=== PATIENT | female | born 1935 | race Caucasian/White ===

== ENCOUNTER → 2022-09-13 | Outpatient (REF) | payer OTHER, MEDICARE, SELFPAY ==
[2022-09-13 08:13] LABS: Anion Gap 9 (5-15); BUN 37 mg/dL (7-18); BUN/Creat Ratio 26.6 RATIO (10-20); Calcium,Total 9.3 mg/dL (8.5-10.1); Chloride 108 mmol/L (98-107); Creatinine, Serum 1.39 mg/dL (0.55-1.02); EST Glomerular Filtration Rate 38 mL/min (>60); Est Glom Filt Rate - Afr Amer 46 mL/min (>60); Glucose 101 mg/dL (74-106); Potassium 3.8 mmol/L (3.5-5.1); Sodium Level 142 mmol/L (136-145)
== END ==
LOC: OLS.BROOKB 05:00
PROVIDERS: Visit Provider Family Medicine
DX: I10 Essential (primary) hypertension (principal)
CPT/HCPCS: 36415; 80048

== ENCOUNTER → 2022-12-23 | Outpatient (REF) | payer OTHER, MEDICARE, SELFPAY ==
[2022-12-23 09:28] LABS: Hematocrit 37.5 % (37-47); Hemoglobin 12.2 g/dL (12.0-15.0); Mean Corp Hgb Conc 32.5 g/dL (32-36); Mean Corpuscular Volume 98.4 fL (81-99); Mean Platelet Vol. 11.1 fl (6.2-12.0); Platelet Count 188 K/mm3 (150-450); RBC Distribution Width CV 15.9 % (11.6-14.6); RBC Distribution Width SD 57.2 fl (35.1-43.9); Red Blood Count 3.81 M/mm3 (4.2-5.4); White Blood Count 5.5 K/mm3 (4.4-11.0)
[2022-12-23 09:46] LABS: Vitamin B12 985 pg/mL (211-911)
[2022-12-23 09:51] LABS: AST(SGOT) 26 U/L (15-37); Alanine Aminotransfer ALT/SGPT 21 U/L (13-56); Albumin, Serum 3.7 g/dL (3.2-5.0); Alkaline Phosphatase 72 U/L (45-117); Anion Gap 9 (5-15); BUN 29 mg/dL (7-18); BUN/Creat Ratio 27.6 RATIO (10-20); Calcium,Total 9.2 mg/dL (8.5-10.1); Chloride 107 mmol/L (98-107); Creatinine, Serum 1.05 mg/dL (0.55-1.02); EST Glomerular Filtration Rate 53 mL/min (>60); Est Glom Filt Rate - Afr Amer 64 mL/min (>60); Globulin 3.6 g/dL (2.2-4.2); Glucose 131 mg/dL (74-106); Potassium 3.7 mmol/L (3.5-5.1); Protein, Total 7.3 g/dL (6.4-8.2); Sodium Level 140 mmol/L (136-145)
== END ==
LOC: OLS.BROOKB 04:00
PROVIDERS: Referring Provider Family Medicine; Visit Provider Family Medicine
DX: D64.9 Anemia, unspecified (principal); I50.32 Chronic diastolic (congestive) heart failure; I35.0 Nonrheumatic aortic (valve) stenosis; I95.1 Orthostatic hypotension; I49.8 Other specified cardiac arrhythmias
CPT/HCPCS: 36415; 80053; 82607; 85027

== ENCOUNTER → 2023-02-07 | Outpatient (REF) | payer MEDICARE, SELFPAY ==
[2023-02-07 08:57] LABS: Anion Gap 10 (5-15); BUN 29 mg/dL (7-18); Calcium,Total 9.8 mg/dL (8.5-10.1); Chloride 105 mmol/L (98-107); Creatinine, Serum 1.16 mg/dL (0.55-1.02); EST Glomerular Filtration Rate 47 mL/min (>60); Est Glom Filt Rate - Afr Amer 57 mL/min (>60); Glucose 94 mg/dL (74-106); Potassium 3.8 mmol/L (3.5-5.1); Sodium Level 140 mmol/L (136-145)
== END ==
LOC: OLS.BROOKB 05:00
PROVIDERS: Visit Provider Family Medicine
DX: I10 Essential (primary) hypertension (principal)
CPT/HCPCS: 36415; 80048

== ENCOUNTER 2023-02-12 10:00 | Emergency (ER) | payer MEDICARE, SELFPAY ==
[2023-02-12 10:01] VITALS: BP 115/56; PULSE 58; RESP 14; TEMP 36.3; O2SAT 97; BMI 28.2
--- NOTE | 2023-02-12 10:26 | CT_ITS ---
STUDY: CT BRAIN WITHOUT CONTRAST REASON FOR EXAM: Female, 87 years old. Altered mental status RADIATION DOSAGE (If Supplied By Facility): CTDIvol = ( 44.99 ) mGy, DLP = ( 762.36 ) mGycm TECHNIQUE: Transaxial CT imaging of the brain was performed without administration of intravenous contrast material. Individualized dose optimization techniques were used for this CT. COMPARISON: No relevant priors. FINDINGS: Normal soft tissue structures. Normal calvarium. Normal size ventricles and extra-axial spaces for the patient''s age. Normal white matter tracts of the cerebral hemispheres. Normal basal ganglia and thalami. Normal brainstem. Normal cerebellum. There is no intracranial hemorrhage. There are no findings of an acute ischemic infarction. Normal visualized paranasal sinuses. CT/Brain/Head without Contrast IMPRESSION: Chronic involutional changes of the brain. No acute hemorrhage Electronically Signed: Anuel Garcia MD at 11:13 EDT ,
--- NOTE | 2023-02-12 10:27 | EX.ED.DYSGE1 ---
HPI History of Present Illness Chief Complaint: Alt LOC Narrative Narrative: This is an 87-year-old female presenting with what sounds like an episode of syncope. Her friend was visiting her and she lives in a dementia unit. She was talking to her and she was slumping down in her chair. She asked her if she felt all right and she said no. She went to go get a nurse to help and when she came back the patient was completely unconscious. This only lasted a short duration. The patient did not have any seizure-like activity. She did not lose her bladder or bowels. Patient has dementia so she does not recall any of this. She does call her friend asked if she is okay. She denies any chest pain or shortness of breath. She has not any recent fevers or falls. She denies any pain. It is reported that her blood pressure was low when I first aroused her. No facial droop, slurred speech. PFSH PFSH Medical History Anemia Chronic diastolic (congestive) heart failure Hallucination Nonrheumatic aortic (valve) stenosis Orthostatic hypotension Presence of prosthetic heart valve Supraventricular tachycardia Home Medications acetaminophen 325 mg tablet 650 mg PO Q6H PRN Pain 02/12/23 [History Last Taken Unknown] amlodipine 5 mg tablet 5 mg PO DAILY 02/12/23 [History Last Taken Unknown] carvedilol 6.25 mg tablet 6.25 mg PO BID 02/12/23 [History Last Taken Unknown] donepezil 10 mg tablet 10 mg PO DAILY 02/12/23 [History Last Taken Unknown] hydrochlorothiazide 25 mg tablet 25 mg PO DAILY 02/12/23 [History Last Taken Unknown] lisinopril 40 mg tablet 40 mg PO DAILY 02/12/23 [History Last Taken Unknown] Allergy/AdvReac Type Severity Reaction Status Date / Time No Known Allergies Allergy Verified 02/12/23 10:11 Social History Smoking Status: Never smoker ROS ROS ED Review of Systems ROS Unobtainable: due to mental status EXAM Physical Exam Const Vital Signs: 02/12/23 10:01 02/12/23 10:47 02/12/23 10:56 Temperature 97.4 F L Temperature Source Temporal Pulse Rate 58 L Pulse Rate [Lying] 51 L Pulse Rate [Sitting (for 1 minute prior to obtaining)] 52 L Pulse Rate [Standing (for 1 minute prior to obtaining)] 64 Respiratory Rate 14 Blood Pressure 115/56 L Blood Pressure [Lying] 102/45 L Blood Pressure [Sitting (for 1 minute prior to obtaining)] 103/54 L Blood Pressure [Standing (for 1 minute prior to obtaining)] 124/67 H Blood Pressure Mean 75 Blood Pressure Mean [Lying] 64 Blood Pressure Mean [Sitting (for 1 minute prior to obtaining)] 70 Blood Pressure Mean [Standing (for 1 minute prior to obtaining)] 86 Pulse Ox 97 Oxygen Delivery Method Room Air Room Air 02/12/23 11:00 02/12/23 12:00 02/12/23 13:00 Temperature Temperature Source Pulse Rate 50 L 51 L 55 L Pulse Rate [Lying] Pulse Rate [Sitting (for 1 minute prior to obtaining)] Pulse Rate [Standing (for 1 minute prior to obtaining)] Respiratory Rate 14 14 Blood Pressure 105/50 L 109/53 L 153/70 H Blood Pressure [Lying] Blood Pressure [Sitting (for 1 minute prior to obtaining)] Blood Pressure [Standing (for 1 minute prior to obtaining)] Blood Pressure Mean 68 71 97 Blood Pressure Mean [Lying] Blood Pressure Mean [Sitting (for 1 minute prior to obtaining)] Blood Pressure Mean [Standing (for 1 minute prior to obtaining)] Pulse Ox 99 98 Oxygen Delivery Method Room Air Room Air 02/12/23 14:35 Temperature Temperature Source Pulse Rate 55 L Pulse Rate [Lying] Pulse Rate [Sitting (for 1 minute prior to obtaining)] Pulse Rate [Standing (for 1 minute prior to obtaining)] Respiratory Rate 13 Blood Pressure 126/57 H Blood Pressure [Lying] Blood Pressure [Sitting (for 1 minute prior to obtaining)] Blood Pressure [Standing (for 1 minute prior to obtaining)] Blood Pressure Mean Blood Pressure Mean [Lying] Blood Pressure Mean [Sitting (for 1 minute prior to obtaining)] Blood Pressure Mean [Standing (for 1 minute prior to obtaining)] Pulse Ox 97 Oxygen Delivery Method Positive well nourished General Appearance ED: NAD Eyes PERRL and EOMs intact bilaterally Chest Wall inspection of chest normal Resp normal respiratory effort and clear to auscultation bilaterally Cardio regular rate and regular rhythm GI normal to inspection, nondistended, normoactive bowel sounds Neuro CN's II-XII intact bilaterally Sensorium / Orientation: alert Psych mental status grossly normal Skin no rashes or lesions noted and no wounds MDM MDM MDM Narrative Medical decision making narrative: Well-appearing female presenting after suspected episode of syncope while she was sitting in the chair. No seizure-like activity. Differential includes intracranial hemorrhage, orthostatic hypotension, ACS, electrolyte abnormalities, anemia, dehydration, CHF, UTI. CBC to assess white blood cell count, hemoglobin, platelets. BMP to assess renal function, electrolytes. BNP to assess for heart failure. High-sensitivity troponin and EKG to assess for ischemia. Chest x-ray to rule out pneumonia or CHF. Orthostatic vital signs obtained. CT brain was obtained as well. CT of the brain was negative for acute findings. Chest x-ray my interpretation shows no acute cardiopulmonary process. The radiologist interprets this and agrees. EKG normal sinus rhythm with a ventricular rate of 51 bpm with occasional PAC on my interpretation. No ischemic changes. CBC shows normal white blood cell count. Hemoglobin stable 11.8. Platelets 190. Creatinine slightly elevated 1.36 and this is near the patient's baseline. Electrolytes unremarkable high-sensitivity troponin is 10. Delta troponin is 8. No significant interval change. BNP 48.4. Orthostatic vital signs were negative. At this point the patient has ultimately negative work-up. I feel she stable for discharge home. Discussed at length with the family. At this point they asked me to take a look at the patient's leg on the right and they were concerned for a small bump. I do not appreciate this bump on examination. The patient does have some tenderness in this area. Counseled to follow-up with her PCP regarding this issue. Impression: 1. Syncope Lab Data Labs: Laboratory Results - last 24 hr 02/12/23 02/12/23 02/12/23 09:47 09:47 09:47 WBC 6.2 RBC 3.66 L Hgb 11.8 L Hct 36.0 L MCV 98.4 MCH 32.2 H MCHC 32.8 RDW Std Deviation 55.0 H RDW Coeff of Patricio 15.3 H Plt Count 190 MPV 11.8 Immature Gran % (Auto) 0.300 Neut % (Auto) 58.8 Lymph % (Auto) 30.6 [place] % (Auto) 6.6 Eos % (Auto) 2.9 Baso % (Auto) 0.8 Absolute Neuts (auto) 3.6 Absolute Lymphs (auto) 1.89 Nucleated RBC % 0 Sodium 143 Potassium 3.7 Chloride 111 H Carbon Dioxide 25.0 Anion Gap 7 BUN 36 H Creatinine 1.36 H Estim Creat Clear Calc 22.61 Est GFR (MDRD) Af Amer 47 L Est GFR (MDRD) Non-Af 39 L BUN/Creatinine Ratio 26.5 H Glucose 121 H Calcium 8.8 Troponin I High Sens 10 B-Natriuretic Peptide 48.4 Urine Color Urine Clarity Urine pH Ur Specific [place] Urine Protein Urine Glucose (UA) Urine Ketones Urine Occult Blood Urine Nitrite Urine Bilirubin Urine Urobilinogen Ur Leukocyte Esterase Urine RBC Urine WBC Ur Squamous Epith Cells Urine Bacteria Urine Mucus 02/12/23 02/12/23 12:26 13:25 WBC RBC Hgb Hct MCV MCH MCHC RDW Std Deviation RDW Coeff of Patricio Plt Count MPV Immature Gran % (Auto) Neut % (Auto) Lymph % (Auto) [place] % (Auto) Eos % (Auto) Baso % (Auto) Absolute Neuts (auto) Absolute Lymphs (auto) Nucleated RBC % Sodium Potassium Chloride Carbon Dioxide Anion Gap BUN Creatinine Estim Creat Clear Calc Est GFR (MDRD) Af Amer Est GFR (MDRD) Non-Af BUN/Creatinine Ratio Glucose Calcium Troponin I High Sens 8 B-Natriuretic Peptide Urine Color Yellow Urine Clarity Sl. Cloudy Urine pH 5.0 Ur Specific [place] 1.015 Urine Protein 30 H Urine Glucose (UA) Normal Urine Ketones Negative Urine Occult Blood Negative Urine Nitrite Negative Urine Bilirubin Negative Urine Urobilinogen Normal Ur Leukocyte Esterase Negative Urine RBC 0 SEEN Urine WBC 0 SEEN Ur Squamous Epith Cells 0-5 SEEN Urine Bacteria 1+ Urine Mucus 0 SEEN Radiography Diagnostic Testing: Clinical Impression(s) from Imaging Studies Brain CT 02/12/23 10:26 IMPRESSION: Chronic involutional changes of the brain. No acute hemorrhage Electronically Signed: Anuel Garcia MD at 11:13 EDT , Chest X-Ray 02/12/23 11:00 IMPRESSION: No acute pulmonary process Electronically Signed: Anuel Garcia MD at 11:13 EDT , Discharge Plan Triage Chief Complaint: Alt LOC ED Provider: Desmond Vera Dx/Rx/DC Orders Instructions: ED Dizziness, Uncertain Cause, ED Dizziness or Syncope ... Prescriptions: No Action acetaminophen 325 mg Tablet 650 mg PO Q6H PRN (Reason: Pain) carvedilol 6.25 mg tablet 6.25 mg PO BID donepezil 10 mg tablet 10 mg PO DAILY amlodipine 5 mg Tablet 5 mg PO DAILY hydrochlorothiazide 25 mg tablet 25 mg PO DAILY lisinopril 40 mg tablet 40 mg PO DAILY Primary Care Provider: Isabella Woodson Referrals: Isabella Woodson MD [Primary Care Provider] - Disposition Disposition: Home, Self Care Discharge Date/Time: 02/12/23 14:42
[2023-02-12 10:54] LABS: Absolute Lymphocyte Count 1.89 X10^3/uL (0.83-4.51); Absolute Neutrophil Count 3.6 X10^3/uL (2.0-7.7); Basophil# 0.05 X10^3/uL; Basophil% 0.8 % (0-1); Eosinophil# 0.18 X10^3/uL; Eosinophils% 2.9 % (0-5); Hemoglobin 11.8 g/dL (12.0-15.0); Lymphocyte # 1.89 X10^3/ul (0.83-4.51); Lymphocyte % 30.6 % (19-41); Mean Corp Hgb Conc 32.8 g/dL (32-36); Mean Corpuscular Hgb 32.2 pg (27.0-32.0); Mean Corpuscular Volume 98.4 fL (81-99); Mean Platelet Vol. 11.8 fl (6.2-12.0); Monocyte# 0.41 X10^3/uL; Monocyte% 6.6 % (0-10); NRBC Flagged by Analyzer 0 % (0-5); Neutrophil # 3.62 X10^3/uL (2.7-7.7); Neutrophil % 58.8 % (47-70); Platelet Count 190 K/mm3 (150-450); RBC Distribution Width CV 15.3 % (11.6-14.6); Red Blood Count 3.66 M/mm3 (4.2-5.4); White Blood Count 6.2 K/mm3 (4.4-11.0)
[2023-02-12 10:56] VITALS: BP 102/45; BP 103/54; BP 124/67; PULSE 51; PULSE 52; PULSE 64
[2023-02-12 11:00] VITALS: BP 105/50; PULSE 50; RESP 14; O2SAT 99
--- NOTE | 2023-02-12 11:00 | RAD_ITS ---
STUDY: X-RAY CHEST REASON FOR EXAM: Female, 87 years old. Atypical chest pain TECHNIQUE: Single AP portable view of the chest. COMPARISON: None. FINDINGS: EKG leads overlie the chest The lungs are clear and expanded. There is no demonstrated pleural abnormality. Normal size heart. Normal mediastinum and [place]. Normal visualized pulmonary arteries. Normal visualized aortic arch and descending thoracic aorta. There are diffuse degenerative changes of the visualized thoracic spine. Normal visualized ribs, clavicles, and shoulders. There is no demonstrated abnormality of the visualized soft tissue structures of the upper abdomen. RAD/Chest 1 View (Portable) IMPRESSION: No acute pulmonary process Electronically Signed: Anuel Garcia MD at 11:13 EDT ,
[2023-02-12 11:12] LABS: BNP,B-Type NATRIURETIC PEPTIDE 48.4 pg/mL (0-100)
[2023-02-12 11:16] LABS: Anion Gap 7 (5-15); BUN 36 mg/dL (7-18); BUN/Creat Ratio 26.5 RATIO (10-20); Calcium,Total 8.8 mg/dL (8.5-10.1); Chloride 111 mmol/L (98-107); Creatinine, Serum 1.36 mg/dL (0.55-1.02); EST Glomerular Filtration Rate 39 mL/min (>60); Est Glom Filt Rate - Afr Amer 47 mL/min (>60); Estimated Creatinine Clearance 22.61 ml/min; Glucose 121 mg/dL (74-106); Potassium 3.7 mmol/L (3.5-5.1); Sodium Level 143 mmol/L (136-145); Troponin-I HS (w/2H Reflex) 10 pg/mL (3.0-54.0)
[2023-02-12 12:00] VITALS: BP 109/53; PULSE 51; RESP 14; O2SAT 98
[2023-02-12 12:35] LABS: Mucous, Urine 0 SEEN /hpf (<or=2+); Red Blood Cells-Urine 0 SEEN /hpf (0-5); White Blood Cells 0 SEEN /hpf (0-5)
[2023-02-12 12:51] LABS: Reflex Troponin-HS? (from REC) Y
[2023-02-12 12:56] LABS: Color, Urine Yellow (Yellow); Glucose, Dipstick Normal (Normal); Ketone-Dipstick Negative (Negative); Leukocyte Esterase-Dipstick Negative /ul (Negative); Nitrite-Dipstick Negative (Negative); Occult Blood-Urine Negative /ul (Negative); Protein-Dipstick 30 mg/dl (Negative); Specific Gravity, Urine 1.015 (1.002-1.030); Urine Bilirubin Dipstick Negative (Negative); Urine Clarity Sl. Cloudy (Clear); Urine Urobilinogen Normal (Normal)
[2023-02-12 13:00] VITALS: BP 153/70; PULSE 55
[2023-02-12 13:05] LABS: Bacteria 1+ /hpf (None Seen); Squamous Epithelial Cells - UA 0-5 SEEN /hpf (5-10)
[2023-02-12 13:49] LABS: Troponin-I HS 8 pg/mL (3.0-54.0)
[2023-02-12 14:35] VITALS: BP 126/57; PULSE 55; RESP 13; O2SAT 97
--- NOTE | 2023-02-12 14:39 | ED.RN ---
THIS RN CALLED BRIGID BACK TO RACHEL NURSE INFORMED OF WORKUP RESULTS AND DISCHARGE.
== END 2023-02-12 14:42 | disposition home or self-care (01) ==
PROVIDERS: Emergency Provider Student in an Organized Health Care Education/Training Program; PCP Family Medicine; Visit Provider Student in an Organized Health Care Education/Training Program
DX: R55 Syncope and collapse (principal); F03.90 Unspecified dementia, unspecified severity, without behavioral disturbance, psychotic disturbance, mood disturbance, and anxiety; I50.32 Chronic diastolic (congestive) heart failure; I35.0 Nonrheumatic aortic (valve) stenosis; Z95.2 Presence of prosthetic heart valve; Z79.899 Other long term (current) drug therapy
CPT/HCPCS: 70450; 71045; 80048; 81001; 83880; 84484; 85025; 93005; 99285; P9612

== ENCOUNTER → 2023-02-28 | Outpatient (REF) | payer MEDICARE, SELFPAY ==
[2023-02-28 08:44] LABS: Vitamin B12 953 pg/mL (211-911)
[2023-02-28 08:51] LABS: Anion Gap 9 (5-15); BUN 34 mg/dL (7-18); BUN/Creat Ratio 26.8 RATIO (10-20); Calcium,Total 8.7 mg/dL (8.5-10.1); Chloride 113 mmol/L (98-107); Creatinine, Serum 1.27 mg/dL (0.55-1.02); EST Glomerular Filtration Rate 42 mL/min (>60); Est Glom Filt Rate - Afr Amer 51 mL/min (>60); Glucose 94 mg/dL (74-106); Potassium 3.9 mmol/L (3.5-5.1); Sodium Level 143 mmol/L (136-145)
== END ==
LOC: OLS.BROOKB 05:00
PROVIDERS: PCP Family Medicine; Visit Provider Family Medicine
DX: I10 Essential (primary) hypertension (principal); E56.9 Vitamin deficiency, unspecified
CPT/HCPCS: 36415; 80048; 82607

== ENCOUNTER → 2023-07-11 | Outpatient (REF) | payer MEDICARE, SELFPAY ==
[2023-07-11 14:53] LABS: Color, Urine Yellow (Yellow); Glucose, Dipstick Normal (Normal); Ketone-Dipstick Negative (Negative); Leukocyte Esterase-Dipstick 100 /ul (Negative); Nitrite-Dipstick Negative (Negative); Occult Blood-Urine 10 /ul (Negative); Protein-Dipstick Negative (Negative); Specific Gravity, Urine 1.015 (1.002-1.030); Urine Bilirubin Dipstick Negative (Negative); Urine Clarity Sl. Cloudy (Clear); Urine Urobilinogen Normal (Normal)
== END ==
LOC: OLS.BROOKB 12:50
PROVIDERS: PCP Family Medicine; Visit Provider Family Medicine
DX: R41.82 Altered mental status, unspecified (principal)
CPT/HCPCS: 81002; 87086; 87088

== ENCOUNTER → 2023-07-25 | Outpatient (REF) | payer MEDICARE, SELFPAY ==
[2023-07-25 09:45] LABS: ALB/GLOB Ratio 0.7 RATIO (0.9-2.4); AST(SGOT) 38 U/L (15-37); Alanine Aminotransfer ALT/SGPT 17 U/L (13-56); Albumin, Serum 2.9 g/dL (3.2-5.0); Alkaline Phosphatase 65 U/L (45-117); Anion Gap 7 (5-15); BUN 26 mg/dL (7-18); BUN/Creat Ratio 21.5 RATIO (10-20); Calcium,Total 8.9 mg/dL (8.5-10.1); Chloride 107 mmol/L (98-107); Creatinine, Serum 1.21 mg/dL (0.55-1.02); EST Glomerular Filtration Rate 45 mL/min (>60); Est Glom Filt Rate - Afr Amer 54 mL/min (>60); Globulin 4.1 g/dL (2.2-4.2); Glucose 118 mg/dL (74-106); Potassium 3.9 mmol/L (3.5-5.1); Sodium Level 135 mmol/L (136-145); Uric Acid 5.9 mg/dL (2.6-6.0)
== END ==
LOC: OLS.BROOKB 05:00
PROVIDERS: PCP Family Medicine; Visit Provider Family Medicine
DX: R60.9 Edema, unspecified (principal)
CPT/HCPCS: 36415; 80053; 84550

== ENCOUNTER 2023-07-30 19:42 | Emergency (ER) | payer MEDICARE, SELFPAY ==
[2023-07-30 19:43] VITALS: BP 161/78; PULSE 70; RESP 16; TEMP 36.4; O2SAT 100
--- NOTE | 2023-07-30 20:17 | EX.ED.DYSGE1 ---
HPI History of Present Illness Chief Complaint: Cellulitis Detail of Chief Complaint: Left elbow swelling. Informant: patient and family Onset/Context/Timing Onset: Days Context: Gradual Onset Timing: Continuous Current Severity: Mild Maximum Severity: Mild Narrative Narrative: 87-year-old female history of dementia in a local extended care facility. Believes she may have fell and injured her left elbow about a week ago. She has had some mild discomfort and swelling of the elbow. No other injuries. X-rays were obtained at the extended care [facility] which were read as negative. No fracture or dislocation. She was seen in urgent care [facility] and sent to the emergency department. She has had no fever or other symptoms. She does not complain of any other injuries. Daughter is at bedside and giving most of the history. Prior similar symptoms: No Recent Illness/Hospitalization: No [facility] Medical History Anemia Chronic diastolic (congestive) heart failure Hallucination Nonrheumatic aortic (valve) stenosis Orthostatic hypotension Presence of prosthetic heart valve Supraventricular tachycardia Home Medications acetaminophen 325 mg tablet 650 mg PO Q6H PRN Pain 02/12/23 [History Last Taken Unknown] amlodipine 5 mg tablet 5 mg PO DAILY 02/12/23 [History Last Taken Unknown] carvedilol 6.25 mg tablet 6.25 mg PO BID 02/12/23 [History Last Taken Unknown] donepezil 10 mg tablet 10 mg PO DAILY 02/12/23 [History Last Taken Unknown] hydrochlorothiazide 25 mg tablet 25 mg PO DAILY 02/12/23 [History Last Taken Unknown] lisinopril 40 mg tablet 40 mg PO DAILY 02/12/23 [History Last Taken Unknown] cephalexin 500 mg capsule 500 mg PO Q6 #40 CAPSULES 07/30/23 [Rx Last Taken Unknown] cephalexin 500 mg capsule 500 mg PO Q6 #40 CAPSULES 07/30/23 [Rx Last Taken Unknown] Allergy/AdvReac Type Severity Reaction Status Date / Time No Known Allergies Allergy Verified 07/30/23 19:44 Social History Smoking Status: Never smoker ROS ROS ED ROS Narrative No recent illness. Review of Systems ROS Unobtainable: Denies due to encephalopathy Constitutional Constitutional ED: Denies chills Eyes Eyes: Denies blurry vision ENT ENT ED: Denies ear pain Cardiovascular Cardiovascular: Denies chest pain Respiratory/Chest Respiratory/Chest: Denies cough Gastrointestinal Gastrointestinal: Denies abdominal pain Genitourinary Genitourinary ED: Denies dysuria Musculoskeletal Musculoskeletal: Denies arthralgias Integumentary Denies abscess Neurologic Neurologic: Denies headache(s) Psychiatric Psychiatric: Denies anxiety Endocrine Endocrinology: Denies cold intolerance Hematologic/Lymphatic Hematologic/Lymphatic: Reports none Allergic/Immunologic Allergic/Immunologic ED: Denies mouth swelling, tongue swelling or urticaria EXAM Physical Exam Narrative Exam Narrative: Well-appearing 87-year-old female. Vital signs are stable afebrile. HEENT exam unremarkable atraumatic. Lungs clear to auscultation. Heart regular rhythm no murmur. Rate about 70. Chest wall and ribs nontender. Abdomen soft nontender. Moving all 4 extremities. No deformity. No significant tenderness. The left elbow has an abrasion. It is mildly warm. There is some inflammation of the bursa but no fluctuance. No fluid to drain. She has full flexion extension of the elbow. There is no bony deformity. No signs of a septic joint. There is mild redness on the posterior aspect of the elbow. This could all be secondary to traumatic bursitis versus an early cellulitis. There is no signs of a septic bursitis nor septic joint. Neurologically she is awake. Limited informant due to her dementia. Const Vital Signs: 07/30/23 19:43 Temperature 97.6 F L Temperature Source Temporal Pulse Rate 70 Respiratory Rate 16 Blood Pressure 161/78 H Blood Pressure Mean 105 Pulse Ox 100 Oxygen Delivery Method Room Air Positive well nourished and well developed; Negative for cachectic, contractures or unkempt General Appearance ED: well developed and NAD; Negative for unkempt, cachectic, contractures, cyanotic or diaphoretic Nutritional Appearance: Negative for cachectic HEENT Reports moist mucous membranes Negative for trauma or tenderness Eyes PERRL and EOMs intact bilaterally General Eye ED: Negative for pale conjunctiva or scleral icterus Neck no lymphadenopathy, supple and no JVD General: Negative for tenderness Lymph Lymphatic: Negative for other Chest Wall inspection of chest normal and palpation of chest normal Chest: Negative for other Resp normal respiratory effort and clear to auscultation bilaterally Effort and Inspection: Negative for retractions Auscultation: Negative for rales, rhonchi or wheezes Cardio regular rhythm, S1 normal heart sound, S2 normal heart sound and no murmurs GI normal to inspection, nondistended, normoactive bowel sounds, non-tender, non-distended and no masses Inspection: Negative for abdominal distention Auscultation: normoactive bowel sounds Palpation: soft; Negative for tender or guarding Back/Spine no CVA tenderness Extremity normal to inspection Extremity Narrative: Left elbow posteriorly mildly swollen. Mild bursitis. No fluctuance. Minimal redness. Mild abrasion. Full flexion-extension the elbow. No bony deformity. No effusion. No septic joint. Traumatic bursitis with or without early cellulitis. Shoulder and left wrist nontender. No axillary lymphadenopathy. Normal trackwalker strength. General Extremety ED: Yes edema General Extremity: edema Neuro CN's II-XII intact bilaterally Sensorium / Orientation: alert Motor Exam: strength 5/5 throughout Psych mental status grossly normal Appearance: Negative for unkempt Attitude: No agitated Mood & Affect: Negative for depressed, anxious or tearful Skin No no rashes or lesions noted and no wounds General Skin Exam: elasticity normal Lesions: No lesion noted Rashes: rashes noted Trauma: abrasion Wounds: Negative for wounds noted MDM MDM MDM Narrative Medical decision making narrative: 87-year-old female has a left elbow traumatic bursitis with possibly an early cellulitis. She will be started on Keflex 500 4 times daily for 10 days. Ice to the area. Tylenol for pain. Follow-up to ensure it is improving. First dose of Keflex given here. Prescription sent to her pharmacy. Daughter is comfortable with the plan. She is already had outpatient x-rays that were read as negative. I reviewed the report. History & Record Review Discussion w/independent historian: Patient and Family Additional record(s) reviewed:: Prior inpatient record, Prior outpatient record, Prior ED visit and Prior labs Discharge Plan Triage Chief Complaint: Cellulitis ED Provider: Benji Key Dx/Rx/DC Orders Clinical Impression: Cellulitis, Bursitis due to trauma Instructions: ED Bursitis, ED Cellulitis Prescriptions: New cephalexin 500 mg capsule 500 mg PO Q6 Qty: 40 0RF cephalexin 500 mg capsule 500 mg PO Q6 Qty: 40 0RF No Action acetaminophen 325 mg Tablet 650 mg PO Q6H PRN (Reason: Pain) carvedilol 6.25 mg tablet 6.25 mg PO BID donepezil 10 mg tablet 10 mg PO DAILY amlodipine 5 mg Tablet 5 mg PO DAILY hydrochlorothiazide 25 mg tablet 25 mg PO DAILY lisinopril 40 mg tablet 40 mg PO DAILY Primary Care Provider: Isabella Woodson Referrals: Isabella Woodson MD [Primary Care Provider] - 1 Week if not improving Activity Restrictions/Additional Instructions: Traumatic bursitis which is inflammation of the bursa sac. She may have an early soft tissue infection called cellulitis. Ice to the area. Tylenol for pain. Biotic Keflex 1 pill 4 times a day till gone to treat any possible infection. Follow-up with your doctor if not improving. Return if a lot worse. Disposition Disposition: Home, Self Care
[2023-07-30 20:23] VITALS: BMI 31.4
[2023-07-30] MEDS: Cephalexin 250 MG Capsule 500 MG PO (20:32)
== END 2023-07-30 20:38 | disposition home or self-care (01) ==
PROVIDERS: Emergency Provider Emergency Medicine; PCP Family Medicine; Visit Provider Emergency Medicine
DX: M70.32 Other bursitis of elbow, left elbow (principal); F03.90 Unspecified dementia, unspecified severity, without behavioral disturbance, psychotic disturbance, mood disturbance, and anxiety; I50.32 Chronic diastolic (congestive) heart failure; S50.312A Abrasion of left elbow, initial encounter; L03.114 Cellulitis of left upper limb; W19.XXXA Unspecified fall, initial encounter; Z79.899 Other long term (current) drug therapy
CPT/HCPCS: 99282

== ENCOUNTER → 2023-09-01 | Outpatient (REF) | payer MEDICARE, SELFPAY ==
--- OUTSIDE RECORDS SUMMARY | 2023-09-01 03:57 | XMS RPT_ITS | CCD ---
Author Name Unknown Address [address] [place] [address] Organization [facility] Care Team Providers Care Supervisor [employer] Name Role Phone Lexus Pozo Primary Care Provider Renae Winchester DO Primary Care Provider [phone] Renae Winchester DO Primary Care Provider [phone] Renae Winchester DO Primary Care Provider [phone] Lexus Pozo Primary Care Provider Unavailable LEXUS POZO Primary Care Unava ilable Medications Current Medications Medication Drug Class(es) Dates Sig (Normalized) Sig (Original) albuterol 0.833 mg/ml / ipratropium bromide 0.167 mg/ml inhalant solution (1 source) Anticholinergic, beta2-Adrenergic Agonist Start: 10-29-2019 1 ampule, Inhalation, EVERY 4 HOURS PRN, Shortness of Breath, Starting Fri10/29/19 at 0209 benzonatate 100 mg oral capsule (1 source) Non-narcotic Antitussive Start: 10-29-2019 take 100 mg by mouth three times daily as needed for cough 100 mg, Oral, 3 TIMES DAILY PRN, Cough, Starting Fri10/29/19 at 0209 Cyanocobalamin (VITAMIN B12) 3000 MCG/ML LIQD (3 sources) Cyanocobalamin (VITAMIN B12) 3000 MCG/ML LIQD Take 1,000 mcg by mouth 0 Active Completed/Discontinued Medications Medication Drug Class(es) Dates Sig (Normalized) Sig (Original) acetaminophen 325 mg oral tablet (4 sources) Start: 02-12-2023 acetaminophen (TYLENOL) 325 mg tablet Take by mouth. 0 02/12/2023 Active Problems Active Problems Problem Classification Problem Date Documented Da te Episodic/Chronic Administrative/social admission (4 sources) Caregiver role strain; Translations: [Dependent relative needing care at home] Episodic Cardiac dysrhythmias (9 sources) Idiojunctional tachycardia; Translations: [EKG: accelerated junctional rhythm] Onset: 01-13-2020 01-13-2020 Chronic Congestive heart failure; nonhypertensive (4 sources) Chronic diastolic heart failure; Translations: [Chronic diastolic (congestive) heart failure] Onset: 12-25-2020 12-25-2020 Chronic Deficiency and other anemia (3 sources) Anemia; Translations: [Anemia, unspecified] Onset: 02-04-2022 Episodic Delirium dementia and amnestic and other cognitive disorders (12 sources) Dementia; Translations: [Unspecified dementia without behavioral disturbance] Onset: 04-03-2015 05-25-2015 Chronic Disorders of lipid metabolism (8 sources) Hyperlipidemia; Translations: [Hyperlipidemia, unspecified] Onset: 04-03-2015 04-03-2015 Chronic Essential hypertension (13 sources) Essential hypertension; Translations: [Essential (primary) hypertension] Onset: 04-03-2015 05-25-2015 Chronic Headache; including migraine (8 sources) Migraine without aura; Translations: [Migraine without aura, not intractable, without status migrainosus] Onset: 04-03-2015 05-25-2015 Chronic Heart valve disorders (20 sources) Aortic valve disorder; Translations: [Aortic valve stenosis] Onset: 04-03-2015 10-01-2018 Chronic Malaise and fatigue (4 sources) Asthenia; Translations: [Other malaise] Onset: 12-31-2021 Episodic Other bone disease and musculoskeletal deformities (4 sources) Disorder of skeletal system; Translations: [Disorder of bone and cartilage] Onset: 04-03-2015 05-25-2015 Chronic Other circulatory disease (7 sources) Orthostatic hypotension; Translations: [Orthostatic hypotension] 10-29-2019 Episodic Other screening for suspected conditions (not mental disorders or infectious disease) (6 sources) EKG: accelerated junctional rhythm; Translations: [Liver function tests abnormal] 10-19-2018 Episodic Skin and subcutaneous tissue infections (1 source) Cellulitis of left elbow; Translations: [Cellulitis of left upper limb] 07-30-2023 Episodic Past or Other Problems Problem Classification Problem Date Documented Da te Episodic/Chronic Acute and unspecified renal failure (4 sources) Acute injury of kidney; Translations: [Acute kidney failure, unspecified] Onset: 01-01-2022 Resolved: 01-01-2022 Episodic Biliary tract disease (8 sources) Gallstone; Translations: [Calculus of gallbladder without cholecystitis without obstruction] Onset: 04-03-2015 05-25-2015 Episodic Fluid and electrolyte disorders (4 sources) Metabolic acidosis, normal anion gap (NAG); Translations: [Acidosis] Onset: 01-01-2022 Resolved: 01-02-2022 Episodic Nutritional deficiencies (8 sources) Vitamin B-complex deficiency ; Translations: [Deficiency of other specified B group vitamins] Onset: 04-03-2015 04-03-2015 Episodic Other and unspecified benign neoplasm (8 sources) Benign neoplasm of colon; Translations: [Benign neoplasm of colon, unspecified] Onset: 04-03-2015 04-03-2015 Episodic Other bone disease and musculoskeletal deformities (4 sources) Disorder of skeletal system; Translations: [Disorder of bone, unspecified] Onset: 04-03-2015 05-25-2015 Episodic Other hematologic conditions (3 sources) Protein level - finding; Translations: [Other specified abnormalities of plasma proteins] Onset: 02-03-2022 Resolved: 03-06-2022 Episodic Other lower respiratory disease (5 sources) Dyspnea on exertion; Translations: [Dyspnea, unspecified] Onset: 01-01-2022 Resolved: 01-02-2022 Episodic Residual codes; unclassified (4 sources) Confusional state; Translations: [Disorientation, unspecified] Resolved: 01-02-2022 Episodic Syncope (7 sources) Syncope and collapse; Translations: [Syncope and collapse] Onset: 10-29-2019 Resolved: 10-29-2019 10-29-2019 Episodic Results Test Name Value Interpretation Reference Range Facil ity Vital Signs Date Time Vital Sign Value Performing Clinician Facility 07-30-2023 19:15-0500 Body temperature 97.11 [degF] Elie Portillo MD Work Phone: [facility] 07-30-2023 19:15-0500 Body weight 70.49 kg Elie Portillo MD Work Phone: [facility] 07-30-2023 19:15-0500 Diastolic blood pressure 86 mm[Hg] Elie Portillo MD Work Phone: [facility] 07-30-2023 19:15-0500 Heart rate 75 /min Elie Portillo MD Work Phone: [facility] 07-30-2023 19:15-0500 Respiratory rate 20 /min Elie Portillo MD Work Phone: [facility] 07-30-2023 19:15-0500 SaO2% (BldA) [Mass fraction] 97 % Elie Portillo MD Work Phone: [facility] 07-30-2023 19:15-0500 Systolic blood pressure 146 mm[Hg] Elie Portillo MD Work Phone: [facility] 02-04-2022 13:30-0400 Diastolic blood pressure 79 mm[Hg] DIRK Gonsalves MD Work Phone: [facility] 02-04-2022 13:30-0400 Heart rate 63 /min DIRK Gonsalves MD Work Phone: [facility] 02-04-2022 13:30-0400 Systolic blood pressure 157 mm[Hg] DIRK Gonsalves MD Work Phone: [facility] 02-04-2022 11:20-0400 Body temperature 97.2 [degF] DIRK Gonsalves MD Work Phone: [facility] 02-04-2022 11:20-0400 Respiratory rate 20 /min DIRK Gosnalves MD Work Phone: [facility] 02-04-2022 11:20-0400 SaO2% (BldA) [Mass fraction] 99 % DIRK Gonsalves MD Work Phone: [facility] 02-04-2022 00:01-0400 Body mass index (BMI) [Ratio] 31.9 kg/m2 DIRK Gonsalves MD Work Phone: [facility] 02-04-2022 00:01-0400 Body weight 66.86 kg DIRK Gonsalves MD Work Phone: [facility] 02-03-2022 15:57-0400 Body height 144.8 cm DIRK Gonsalves MD Work Phone: [facility] 01-02-2022 11:44-0400 Body temperature 98.8 [degF] Desmond Jimenez MD Work Phone: [facility] 01-02-2022 11:44-0400 Diastolic blood pressure 82 mm[Hg] Desmond Jimenez MD Work Phone: [facility] 01-02-2022 11:44-0400 Heart rate 79 /min Desmond Jimenez MD Work Phone: [facility] 01-02-2022 11:44-0400 Respiratory rate 17 /min Desmond Jimenez MD Work Phone: [facility] 01-02-2022 11:44-0400 SaO2% (BldA) [Mass fraction] 95 % Desmond Jimenez MD Work Phone: [facility] 01-02-2022 11:44-0400 Systolic blood pressure 140 mm[Hg] Desmond Jimenez MD Work Phone: [facility] 01-02-2022 00:26-0400 Body mass index (BMI) [Ratio] 31.77 kg/m2 Desmond Jimenez MD Work Phone: [facility] 01-02-2022 00:26-0400 Body weight 66.59 kg Desmond Jimenez MD Work Phone: [facility] 01-01-2022 02:10-0400 Body height 144.8 cm Desmond Jimenez MD Work Phone: [facility] 10-29-2019 15:08-0500 Body Temperature 99.1 [degF] [facility] [place] 10-29-2019 15:08-0500 BP Diastolic 60 mm[Hg] [facility] [place] [facility] [place] 10-29-2019 15:08-0500 BP Systolic 132 mm[Hg] [facility] [place] 10-29-2019 15:08-0500 Pulse (Heart Rate) 59 /min [facility] [place] 10-29-2019 15:08-0500 Pulse Oximetry 95 % [facility] [place] [facility] [place] 10-29-2019 15:08-0500 Respiratory Rate 16 /min DIRK Don [facility] [place] [place] 10-29-2019 01:15-0500 BMI (Body Mass Index) 31.62 kg/m2 NA Aleksandr Don [facility] [place], [place] 10-29-2019 01:15-0500 Body weight 66.27 [facility] 10-29-2019 01:15-0500 Height 144.8 cm NA Aleksandr [facility] , [place] Encounters Encounter Date Encounter Type Care Provider Facility Start: 07-30-2023 End: 07-30-2023 ambulatory LEXUS POZO Facility:[facility] Start: 07-30-2023 End: 07-30-2023 Patient encounter procedure Elie Portillo MD Work Phone: [facility] Procedures Date Procedure Procedure Detail Performing Clinician Start: 03-14-2022 Echo tthrc r-t 2d w/ wom-mode compl spec&colr d Renae Winchester DO Work Phone: Start: 02-04-2022 ADD ON LAB TEST Jessica BRANHAM Work Phone: Start: 02-04-2022 Ecg routine ecg w/le ast 12 lds w/i&r Eric Bynum MD Work Phone: Start: 02-04-2022 Assay of magnesium Massimo Bynum MD Work Phone: Start: 02-04-2022 BASIC METABOLIC PANE L W/ REFLEX TO MG FOR LOW K Eric Bynum MD Work Phone: Start: 02-03-2022 Assay of troponin quantitative Eric Bynum MD Work Phone: Start: 02-03-2022 Basic metabolic pane l calcium total Maximino Pastrana MD Work Phone: Start: 02-03-2022 Radex ankle complete minimum 3 views Maximino Pastrana MD Work Phone: Start: 02-03-2022 Radiologic exam ches t single view Maximino Pastrana MD Work Phone: Start: 02-03-2022 Ecg routine ecg w/le ast 12 lds w/i&r Mariana Álvarez PA-C Work Phone: Start: 01-02-2022 25 hydroxy includes fractions if performed Jessica BRANHAM Work Phone: Start: 01-02-2022 BASIC METABOLIC PANE L W/ REFLEX TO MG FOR LOW K Eric Bynum MD Work Phone: Start: 01-01-2022 ADD ON LAB TEST Jessica BRANHAM Work Phone: Start: 01-01-2022 BASIC METABOLIC PANE L W/ REFLEX TO MG FOR LOW K Eric Bynum MD Work Phone: Start: 01-01-2022 Cyanocobalamin vitamin b-12 Eric Bynum MD Work Phone: Start: 12-31-2021 POCT COVID-19, ANTIGEN Desmond Jimenez MD Work Phone: Start: 12-31-2021 Radiologic exam ches t single view Desmond Jimenez MD Work Phone: Start: 12-31-2021 Culture bacterial qu anttative colony count urine Desmond Jimenez MD Work Phone: Start: 12-31-2021 Urnls dip stick/tabl et rgnt auto w/o microscopy Desmond Jimenez MD Work Phone: Start: 12-31-2021 Comprehensive metabolic panel Desmond Jimenez MD Work Phone: Start: 12-31-2021 Ecg routine ecg w/le ast 12 lds w/i&r Desmond Jimenez MD Work Phone: Start: 01-20-2021 Comprehensive metabolic panel Renae Winchester DO Work Phone: Start: 03-13-2020 Basic metabolic pane l calcium total Lexus Spoljaric Work Phone: Start: 10-29-2019 ADD ON LAB TEST Irma Berry Work Phone: Start: 10-29-2019 Assay of troponin quantitative Peter Brandon Work Phone: Start: 10-29-2019 Cyanocobalamin vitamin b-12 Peter Brandon Work Phone: Start: 10-29-2019 Assay of troponin quantitative Peter Brandon Work Phone: Start: 10-29-2019 Basic metabolic pane l calcium total Peter Brandon Work Phone: Start: 10-29-2019 Blood count complete automated Peter Brandon Work Phone: Start: 10-28-2019 Electrocardiogram Start: 10-16-2019 Basic metabolic pane l calcium total Imani Wheatley Work Phone: Start: 10-16-2019 Blood count complete automated Imani Wheatley Work Phone: Start: 10-14-2019 Echo tthrc r-t 2d w/ wom-mode compl spec&colr d Imani Wheatley Work Phone: Plan of Treatment Date Care Activity Detail Author Start: 02-02-2028 DTaP/Tdap/Td vaccine (4 - Td or Tdap) DTaP/Tdap/Td vaccine (4 - Td or Tdap) [facility] Start: 02-02-2028 DTaP/Tdap/Td vaccine (4 - Td) DTaP/Tdap/Td vaccine (4 - Td) [place], [place] Start: 02-02-2028 Urine microalbumin profile DTaP,Tdap,Td Vaccine (4 - Td or Tdap) [facility] Start: 04-07-2025 Diabetes Screening Diabetes Screening [facility] Start: 04-25-2023 Covid-19 Vaccine () Covid-19 Vaccine () [facility] Start: 04-25-2023 Influenza vaccination Influ[facility] Vacc[facility] Start: 03-11-2023 End: 03-11-2023 Patient encounter procedure 03/11/2023 Office Visit Family Medicine Renae Winchester, DO [address] [place] [address] [facility] Start: 03-08-2023 Annual Wellness Visit (AWV) Annual Wellness Visit (AWV) [facility] Start: 02-28-2023 Depression Screen Depression Screen [facility] Start: 12-25-2022 Depression Screen Depression Screen [facility] Start: 08-25-2022 Advance Directive Discussion Advance Directive Discussion [facility] Start: 08-25-2022 Depression Assessment Depression Assessment [facility] Start: 04-25-2022 Influenza vaccination Flu vaccine (#1) [facility] Start: 03-22-2022 End: 03-22-2022 Patient encounter procedure 03/22/2022 Office Visit Family Medicine Renae Winchester, DO [address] [place] [address] [facility] Start: 03-14-2022 End: 03-14-2022 Patient encounter procedure 03/14/2022 Appointment Echocardiography Renae Winchester, DO [address] [place] [address] [facility] Start: 03-07-2022 End: 03-07-2022 Patient encounter procedure 03/07/2022 Office Visit Family Medicine Renae Winchester, DO [address] [place] [address] [facility] Start: 02-07-2022 End: 02-07-2022 Evaluation and management of inpatient 02/07/2022 Office Visit Family Medicine Elaine Campbell, [employer] [address], [place] [id number] [facility] Start: 01-20-2022 Creatinine measurement Creatinine monitoring [facility] Work Phone: Start: 01-20-2022 Potassium monitoring Potassium monitoring [facility] Work Phone: Start: 12-26-2021 Annual Wellness Visit (AWV) Annual Wellness Visit (AWV) [facility] Start: 10-26-2021 COVID-19 Vaccine (4 - Booster for Moderna series) COVID-19 Vaccine (4 - Booster for Moderna series) [facility] Start: 03-17-2021 COVID-19 Vaccine (3 - Booster for Moderna series) COVID-19 Vaccine (3 - Booster for Moderna series) [facility] Start: 10-28-2020 Creatinine measurement Creatinine monitoring [facility] [place] Start: 10-28-2020 Creatinine monitoring Creatinine monitoring [facility] [place] , [place] Start: 10-28-2020 Potassium monitoring Potassium monitoring [facility], [place] Start: 06-26-2020 End: 06-26-2020 Office Visit 06/26/2020 Office Visit Family Medicine Lexus Pozo MD [address] [place] [address] [phone] [facility] Start: 04-25-2020 Influenza vaccination Flu vaccine (#1) [facility], [place] Start: 01-13-2020 End: 01-13-2020 Office Visit 01/13/2020 Office Visit Cardiology Eric Fall MD [address] [place] [address] [phone] [facility] Start: 12-11-2019 Creatinine monitoring Creatinine monitoring [facility] , [place] Start: 12-11-2019 Potassium monitoring Potassium monitoring [facility], [place] Start: 11-15-2019 End: 11-15-2019 Office Visit 11/15/2019 Office Visit Family Medicine Lexus Pozo MD [address] [place] [phone] [facility] Start: 11-05-2019 End: 11-05-2019 Office Visit 11/05/2019 Office Visit Family Medicine Lexus Pozo MD [address] [place] [phone] [facility] Start: 02-11-2019 Annual Wellness Visit (AWV) Annual Wellness Visit (AWV) [place], [place] Start: 09-26-2011 Shingles Vaccine (2 of 3) Shingles Vaccine (2 of 3) [place], [place] Start: 1999 Bone Density Screening Bone Density Screening [facility] Start: 1994 RSV Vaccine (1 - 1-dose 60+ series) RSV Vaccine (1 - 1-dose 60+ series) [facility] Start: 1944 Lipid panel Lipids [facility] Basic metabolic 1999 panel Basic Metabolic Panel Lab Routine Daily until discontinued starting 10/29/2019, 1 completed [place], [place] Immunizations Immunization Date Immunization Notes Care Provider Stephen elliott 06-28-2021 COVID-19, MODERNA BL UE border, Primary or Immunocompromised, (age 12y+), IM, 100 mcg/0.5mL Renae Winchester DO Work Phone: [facility] 05-25-2021 Influenza, Quadv, adjuvanted, 65 yrs +, IM, PF (Fluad) Renae Winchester DO Work Phone: [facility] Work Phone: 05-25-2021 influenza virus vacc ine, unspecified formulation Elie Portillo MD Work Phone: [facility] 03-29-2021 zoster vaccine recombinant Renae Winchester DO Work Phone: [facility] Work Phone: 01-13-2021 zoster vaccine recombinant Renae Winchester DO Work Phone: [facility] Work Phone: 10-18-2020 COVID-19, Moderna, P F, 100mcg/0.5mL Renae Winchester DO Work Phone: [facility] Work Phone: 09-20-2020 COVID-19, Moderna, P F, 100mcg/0.5mL Renae Winchester DO Work Phone: [facility] Work Phone: 06-26-2020 Influenza, High-dose , Quadv, 65 yrs +, IM (Fluzone) Renae Winchester DO Work Phone: [facility] 07-19-2019 influenza, high dose seasonal, preservative-free [facility] 06-13-2018 influenza, high dose seasonal, preservative-free [facility] 06-13-2018 influenza, injectabl e, quadrivalent, preservative free Renaeclaudia Winchester DO Work Phone: [facility] 02-01-2018 tetanus toxoid, redu latasha diphtheria toxoid, and acellular pertussis vaccine, adsorbed Renaeclaudia Winchester DO Work Phone: [facility] Work Phone: 01-29-2018 diphtheria, tetanus toxoids and acellular pertussis vaccine, 5 pertussis antigens [facility], [place] 05-23-2016 influenza, high dose seasonal, preservative-free [facility], [place] 05-29-2015 influenza virus vacc ine, unspecified formulation [facility] , [place] 05-29-2015 influenza virus vacc ine, whole virus Renae Winchester DO Work Phone: [facility] Work Phone: 05-29-2015 pneumococcal conjuga te vaccine, 13 valent [facility], [place] 12-07-2012 diphtheria, tetanus toxoids and acellular pertussis vaccine [facility], [place] 08-01-2011 zoster vaccine, live [facility], [place] 01-28-2011 pneumococcal polysaccharide vaccine, 23 valent [place], [place] Payers Date Payer Category Payer Medicare UHC MEDICARE UHC MEDICARE ADVANTAGE HMO [id number] 2019-Present [phone] [address] [address] [place] [address] HMO [id number] 2015 Medicare UHC MEDICARE UHC MEDICARE COMPLETE xxxxxxxxx 2015-Present xxxxxxxxx [id number] 2015 Medicare UHC MEDICARE UHC MEDICARE COMPLETE [id number] 2015-Present [id number] 2015 Medicare [id number] Social History Date Type Detail Facility Start: 10-14-2019 End: 07-30-2023 [facility] Start: 10-14-2019 End: 07-30-2023 Alcohol intake Current non-drinker of alcohol (finding) [facility] [employer] [facility] Start: 1935 Sex Assigned At Not on file [facility] [employer] [facility] Start: 03-13-2020 End: 07-30-2023 Tobacco use and exposure [facility] Start: 12-21-2021 End: 03-07-2022 Exposure to SARS-CoV-2 (event) Not sure [facility] [employer] [facility] Start: 12-25-2021 End: 02-07-2022 History SDOH Alcohol Frequency 1 [facility] Work Phone: Start: 12-25-2021 End: 02-28-2022 History SDOH Physical Activity DPW 0 [facility] Work Phone: Start: 02-07-2022 History SDOH Financial 5 [facility] Work Phone: Start: 1935 Sex Assigned At Female S [place] Start: 07-30-2023 History of Social function [facility] Start: 07-30-2023 Tobacco use panel [facility] Clinical Notes 01-02-2022 to 07-30-2023 Elie Portillo MD - 07/30/2023 7:24 PM ESTDischarge Instr - LabDischarge Instr - Other OrdersAdditional InstructionsAmy Kurt - 02/04/2022 8:48 AM EDTHCARROL Luevano - 01/02/2022 1:03 PM EDT Note Date & Type Note Facility 07-30-2023 Note HNO ID: [id number] Author: Elie Portillo MD Service: ? Author Type: Physician Type: Progress Notes Filed: 07/30/2023 7:32 PM Note Text: Patient presents with: Mass: Lump on left elbow, painful, red, swelling x 1 week HPI: [facility] Triage Note: Patient presents to the [facility] with complaint of left elbow swelling. She had fallen at her care facility a week ago - xray negative. Bruising has improved, but now the elbow is warm, swollen, and tender. No known fevers. Tender erythema and swelling over the dorsal left elbow. Advised ER evaluation for possible septic olecranon bursitis vs cellulitis. Her daughter will take her to [facility]. MEDICATIONS: acetaminophen (TYLENOL) 325 mg tablet Take by mouth. amLODIPine (NORVASC) 5 mg tablet carvedilol (COREG) 6.25 mg tablet donepezil (ARICEPT) 10 mg tablet Take 1 tablet by mouth once daily. hydroCHLOROthiazide 25 mg tablet Take 1 tablet by mouth once daily. lisinopril (ZESTRIL) 40 mg tablet Take by mouth. melatonin 3 mg tablet Take 1 tablet by mouth every evening. cholecalciferol (VITAMIN D3) 1,000 unit tab tablet Take 400 Units by mouth. LISINOPRIL ORAL Take by mouth. donepezil (ARICEPT) 10 mg tablet Take 10 mg by mouth daily at bedtime. aspirin (ASPIR-81 ORAL) Take by mouth. calcium carbonate (CALCIUM 500 ORAL) Take by mouth. cyanocobalamin (VITAMIN B-12) 1,000 mcg tab Take 1,000 mcg by mouth once daily. niacin (NIACIN) 50 mg tablet Take 50 mg by mouth daily with breakfast. (Patient not taking: Reported on 07/30/2023) triamterene-hydrochlorothiazide 37.5-25 mg per capsule Take by mouth. (Patient not taking: Reported on 07/30/2023) ALLERGIES: ALLERGIES No Known Allergies VITALS: BP 146/86 Pulse 75 Temp 36.2 ?C (97.1 ?F) Resp 20 Wt 70.5 kg (155 lb 6.4 oz) SpO2 97% BMI 33.63 kg/m? [facility] 07-30-2023 History of Presen t illness Narrative Patient presents with: Mass: Lump on left elbow, painful, red, swelling x 1 week HPI: [facility] Triage Note: Patient [facility] care with complaint of left elbow swelling. She had fallen at her care facility a week ago - xray negative. Bruising has improved, but now the elbow is warm, swollen, and tender. No known fevers. Tender erythema and swelling over the dorsal left elbow. Advised ER evaluation for possible septic olecranon bursitis vs cellulitis. Her daughter will take her to [facility]. MEDICATIONS: acetaminophen (TYLENOL) 325 mg tablet Take by mouth. amLODIPine (NORVASC) 5 mg tablet carvedilol (COREG) 6.25 mg tablet donepezil (ARICEPT) 10 mg tablet Take 1 tablet by mouth once daily. hydroCHLOROthiazide 25 mg tablet Take 1 tablet by mouth once daily. lisinopril (ZESTRIL) 40 mg tablet Take by mouth. melatonin 3 mg tablet Take 1 tablet by mouth every evening. cholecalciferol (VITAMIN D3) 1,000 unit tab tablet Take 400 Units by mouth. LISINOPRIL ORAL Take by mouth. donepezil (ARICEPT) 10 mg tablet Take 10 mg by mouth daily at bedtime. aspirin (ASPIR-81 ORAL) Take by mouth. calcium carbonate (CALCIUM 500 ORAL) Take by mouth. cyanocobalamin (VITAMIN B-12) 1,000 mcg tab Take 1,000 mcg by mouth once daily. niacin (NIACIN) 50 mg tablet Take 50 mg by mouth daily with breakfast. (Patient not taking: Reported on 07/30/2023) triamterene-hydrochlorothiazide 37.5-25 mg per capsule Take by mouth. 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 However, given persistent elevation in blood pressure and questionable aphasia reported in [place] ED, will work-up for stroke. Stroke B order set - CTA H/N and MRI brain NAP. No indication for echo as it is recently done in February 2022 - Cardiology consulted - Geriatrics following --> appreciate recs, completed POA enactment form - Psyh--> lacks capacity - PT/OT> SNF - Medically stable for discharge to [place] Diagnosis Date Aortic stenosis B12 deficiency Cholelithiasis Colon polyp Diverticulosis of colon (without mention of hemorrhage) Headache(784.0) Hyperlipidemia Hypertension Vascular dementia (HCC) Procedures: None Hospital Course: See discharge diagnoses list above and medication adjustments below in med rec.The patient is discharged in improved and stable condition. Consults: IP CONSULT TO HOSPITALIST IP CONSULT TO CASE MANAGEMENT IP CONSULT TO CARDIOLOGY IP CONSULT TO GERIATRICS IP CONSULT TO PSYCHIATRY Discharge Instructions: Diet: ADULT DIET; Regular; Low Sodium (2 gm) Activity: as tolerated Recommended Outpatient Tests: Disposition: Patient discharged in stable condition to [place]. Greater than 30 minutes spent discharging the patient and coming up with patient discharge plan. Vitals: BP (!) 96/49 Pulse 61 Temp 97.3 ?F (36.3 ?C) (Temporal) Resp 18 SpO2 97% Pulse Ox: SpO2 Av.3 % Min: 97 % Max: 98 % Supplemental O2: General appearance: No apparent distress, appears stated age and cooperative with exam HEENT: Normal cephalic, atraumatic without obvious deformity. Pupils equal, round, and reactive to light. Extra ocular muscles intact. Conjunctivae/corneas clear. Neck: Supple, with full range of motion. No jugular venous distention. Trachea midline. No lymphadenopathy. Respiratory: Normal respiratory effort. Clear to auscultation, bilaterally without Rales/Wheezes/Rhonchi. Cardiovascular: Regular rate and rhythm with normal S1/S2 without murmurs, rubs or gallops. Abdomen: Soft, non-tender, non-distended with normal bowel sounds. No rebound or guarding. Musculoskeletal: No clubbing, cyanosis or edema bilaterally. Full range of motion without deformity. Skin: Skin color, texture, turgor normal. No rashes or lesions. Neurologic: Neurovascularly intact without any focal sensory/motor deficits. Cranial nerves: II-XII intact, grossly non-focal. Discharge Medications: Medication List START taking these medications amLODIPine 5 MG tablet Commonly known as: NORVASC Take 1 tablet by mouth daily Start taking on: April 11, 2022 carvedilol 6.25 MG tablet Commonly known as: COREG Take 1 tablet by mouth 2 times daily (with meals) hydroCHLOROthiazide 25 MG tablet Commonly known as: HYDRODIURIL Take 1 tablet by mouth daily Start taking on: April 11, 2022 melatonin 3 MG Tabs tablet Take 1 tablet by mouth nightly CONTINUE taking these medications aspirin 81 MG tablet calcium carbonate 600 MG Tabs tablet donepezil 10 MG tablet Commonly known as: ARICEPT TAKE 1 TABLET BY MOUTH DAILY lisinopril 40 MG tablet Commonly known as: PRINIVIL;ZESTRIL Take 1 tablet by mouth daily TAKE 1 TABLET BY MOUTH DAILY vitamin B-12 1000 MCG tablet Commonly known as: CYANOCOBALAMIN vitamin D 1000 UNIT Tabs tablet Commonly known as: CHOLECALCIFEROL STOP taking these medications metoprolol succinate 100 MG extended release tablet Commonly known as: Toprol XL Where to Get Your Medications These medications were sent to [facility] ([facility]) - [place], [place] - [address] [phone] - F [phone] [address] [place] [phone] amLODIPine 5 MG tablet carvedilol 6.25 MG tablet hydroCHLOROthiazide 25 MG tablet melatonin 3 MG Tabs tablet Recommended Follow-up: Alanis Gavin, RIC - FILE[employer]KER DEVELOPER [address] [facility], [address] [facility] [phone] Follow up on 04/24/2022 S/P hospital Cardiology f/u at 1:30 pm. Readmission Risk Risk of Unplanned Readmission: 14 Complexity of Follow up: [] Moderate Complexity: follow up within 7-14 calendar days (91909) [x] Severe Complexity: follow up within 7 calendar days (30241) Follow up Testing, Pending results or Referrals at Transitional Care Visit: [x] yes [] no Instructions to MA: Please call patient on day after discharge (must document p (more content not included)... [facility] 02-04-2022 Note Attestation signed by Duran Salazar DO at 02/05/2022 11:13 AM Attending Supervising Physician's Attestation Statement I performed a history and physical examination on the patient and discussed the management with the physician assistant professor of geography. I reviewed and agree with the findings and plan as documented in her note . [facility] Discharge Summary Dorothy Christiansen : 1935 ADMIT DATE: 02/03/2022 DISCHARGE DATE: 02/04/2022 PRIMARY CARE PHYSICIAN: Renae Winchester DO VISIT STATUS: Observation CODE STATUS: Full Code DISCHARGE DIAGNOSES: Principal Problem: Uncontrolled hypertension Active Problems: Elevated troponin Anemia Dementia without behavioral disturbance (HCC) S/P TAVR (transcatheter aortic valve replacement) Resolved Problems: * No resolved hospital problems. * HOSPITAL COURSE: Pt is an 86 yo female with PMHx of s/p TAVR, HTN, HLD, vascular dementia presenting d/t asymptomatic uncontrolled HTN (SBP in 190s). SBP improved to 150s for > 24hrs without prns, and amlodipine was added to her medication regimen for discharge. She and family were agreeable to keeping a blood pressure log to bring to transitional care appt. Patient is being discharged in stable condition and agrees with plan. Understands importance of close follow up for re-evaluation and possible repeat vitals/labs/imaging. The problems as detailed below were addressed on admission. #Uncontrolled HTN #HLD - SBP improved to 150s w/o intervention for > 24 hrs. Start amlodipine and continue home lisinopril. Keep BP log - Continue atorvastatin ? #Elevated Troponin - Troponin 0.058-> 0.05. No acute ST-T changes on EKG and pt denies CP and SOB. Suspect in setting of uncontrolled HTN ? #R ankle pain (resolved)- XR's w/ lateral soft tissue swelling, no acute fractures ? #Anemia- Hgb 11.6-> 9.8 overnight. No obvious signs of bleeding. Check repeat CBC at transitional care appt ? # s/p TAVR- Continue ASA ? #Vascular Dementia- Continue memantine and aricept PROCEDURES: CONSULTANTS: DISCHARGE MEDICATIONS: Significant Medication Changes: Start amlodipine Medication List START taking these medications amLODIPine 5 MG tablet Commonly known as: NORVASC Take 1 tablet by mouth daily Start taking on: February 05, 2022 CONTINUE taking these medications aspirin 81 MG tablet calcium carbonate 600 MG Tabs tablet donepezil 10 MG tablet Commonly known as: ARICEPT TAKE 1 TABLET BY MOUTH DAILY lisinopril 40 MG tablet Commonly known as: PRINIVIL;ZESTRIL Take 1 tablet by mouth daily TAKE 1 TABLET BY MOUTH DAILY memantine 5 MG tablet Commonly known as: NAMENDA Take 1 tablet by mouth daily vitamin B-12 1000 MCG tablet Commonly known as: CYANOCOBALAMIN vitamin D 1000 UNIT Tabs tablet Commonly known as: CHOLECALCIFEROL Where to Get Your Medications These medications were sent to [facility]/pharmacy #[id number] - [place], [place] - [address] [place] [address] - P [phone] - F [phone] [place] [id number] ? amLODIPine 5 MG tablet ? lisinopril 40 MG tablet DIET: ADULT DIET; Regular; No Caffeine ACTIVITY: No restriction. SIGNIFICANT DIAGNOSTIC STUDIES: XR R ankle and CXR PENDING RESULTS AT TIME OF DISCHARGE: NA RECOMMENDED NEXT STEPS: Repeat CBC and monitor hgb Titrate amlodipine up if indicated COMPLEXITY OF FOLLOW UP: [] Moderate Complexity:follow up within 7-14 calendar days (09959) [x] Severe Complexity: follow up within 7 calendar days (04951) FOLLOW UP TESTING, PENDING RESULTS OR REFERRALS AT TRANSITIONAL CARE VISIT: [x] Yes - Repeat CBC - Monitor BP's closely and adjust meds as needed [] No DISPOSITION: Home FACILITY/HOME CARE AGENCY NAME: Follow up with Renae iWnchester DO scheduled Notification (telephone encounter) to PCP initiated: [x] Yes [] No INSTRUCTIONS TO MA/SW: Please call patient on day after discharge (must document patient contacted within 2 business days of discharge). FOLLOW UP QUESTIONS FOR MA/SW: 1. Did you get medications filled and taking them as instructed fromdischarge? 2. Are you following your discharge instructions from your hospital stay? 3. Please confirm patient is scheduled for a follow up appointment within the above time frame. DISCHARGE TIME: < 30 minutes Electronically signed by CARROL English on02/04/22 at 2:48 PM EDT [facility] 02-04-2022 Hospital Discharg e instructions Nakia Reeder RN - 02/04/2022 3:48 PM EDT Your physician has ordered skilled home care services for you. Your home care will be provided by: [facility] [phone] Rosa Ackerman LPN - 02/04/2022 8:59 AM EDT Your physician has ordered skilled home care services for you. Your home care will be provided by: [facility] [phone] Jessica Castillo PA - 02/04/2022 Images from the original note were not included. Physician discharge instructions: Dear Stephon, Thank you for allowing me to be a part of the team that provided your medical care during this hospital stay. Here is a brief summary of what we found and instructions for you as you leave the hospital. Reason(s) for hospital stay: You were seen in the hospital for high blood pressure which improved throughout your admission. A new medication called Amlodipine was started. Please continue to take this and monitor your blood pressures at home to record and bring into your follow up appointments. If you begin having SAUNDERS's, experiencing blurry vision, develop dizziness/lightheadedness, please come back to the emergency department for repeat evaluation. Discharge instructions: - Please attend all follow-up appointments as scheduled. - Please bring a medication list and all of your medications to your appointments. - Please take all medications exactly as prescribed in these instructions. If your symptoms return or worsen, please seek immediate medical attention. Thank you for allowing me to be part of your care. I hope you continue to feel better soon. CARROL English [facility] Hospital Medicine Program Please note: You were cared for by a hospitalist during your hospital stay. Once you are discharged, your primary care physician will handle any further medical issues. Please note that no refills for any discharge medications will be authorized once you are discharged, as it is imperative that you return to your primary care physician (or establish a relationship with a primary care physician if you do not have one) for your aftercare needs so that they can reassess your need for medications and monitor your lab values. Your primary care physician should be able to send refills for medications after your follow up appointment. documented in this encounter [facility] Work Phone: 02-04-2022 History of Presen t illness Narrative Physical Therapy Facility/Department: [facility] Physical Therapy Initial Assessment Name: Dorothy Christiansen : 1935 Date of Service: 02/04/2022 Discharge Recommendations: Other (comment),Continue to assess pending progress (FBT) Patient Diagnosis(es): The encounter diagnosis was Elevated troponin. Past Medical History: has a past medical history of Aortic stenosis, B12 deficiency, Cholelithiasis, Colon polyp, Diverticulosis of colon (without mention of hemorrhage), Headache(784.0), Hyperlipidemia, Hypertension, and Vascular dementia (HCC). Past Surgical History: has a past surgical history that includes Tubal ligation and Aortic valve replacement (2019). Assessment Body Structures, Functions, Activity Limitations Requiring Skilled Therapeutic Intervention: Decreased functional mobility ;Decreased ADL status;Decreased body mechanics;Decreased tolerance to work activity;Decreased strength;Decreased safe awareness;Decreased endurance;Decreased balance;Decreased coordination Assessment: Pt was at sink upon entry w nursing. Performed stand <> sit transfer independently while asking history questions. Pt was able to get back up to standing independently as well. Ambulated 150 ft w/o an AD but was unsteady on multiple occasions and feet crossed midline often. Pt was CGA during ambulation. Pt negotiated 10 stairs. Used the railing on the R going up and down and required min assist x 1 to maintain stability and safely move up and down the stairs. Pt was able to get back into bed independently and also doff socks. Noted slight R ankle edema compared to the L. Pt is not at her functional baseline and is not safe to return home independently. Recommend facility based therapy to improve on deficits listed above. Therapy Prognosis: Good Decision Making: Medium Complexity Requires PT Follow-Up: Yes Activity Tolerance Activity Tolerance: Patient limited by endurance;Patient limited by fatigue Plan Plan Plan: 2-3 times per week Plan weeks: 4 wks Current Treatment Recommendations: Strengthening,ROM,Balance training,Functional mobility training,Transfer training,ADL/Self-care training,Endurance training,Gait training,Stair training,Home exercise program,Therapeutic activities Plan Comment: Start AD trials to see if it improves stability and safety Safety Devices Type of Devices: All karen prominences offloaded,Call light within reach,Gait belt,Left in bed Restraints Restraints Initially in Place: No Restrictions Restrictions/Precautions Restrictions/Precautions: Up as Tolerated Required Braces or Orthoses?: No Subjective General Chart Reviewed: Yes Patient assessed for rehabilitation services?: Yes Response To Previous Treatment: Not applicable Family / Caregiver Present: No Diagnosis: Elevated troponin Follows Commands: Within Functional Limits Subjective Subjective: Pt was agreeable to therapy. Denied any pain in LEs currently. Reported she got tired quickly but it is probably because she has been laying in bed for a while. Social/Functional History Social/Functional History Lives With: Alone Type of Home: House Home Layout: Two level Receives Help From: Family (Son lives next door and is able to help as needed) ADL Assistance: Independent Homemaking Assistance: Independent Homemaking Responsibilities: Yes Ambulation Assistance: Independent Transfer Assistance: Independent Vision/Hearing Cognition Orientation Overall Orientation Status: Within Functional Limits Orientation Level: Disoriented to place (Once back in room pt kept asking if this was really her room and that it looked different.) Cognition Overall Cognitive Status: WFL Objective Heart Rate: 72 Heart Rate Source: Monitor BP: (!) 158/88 BP Location: Left Arm Patient Position: Supine MAP (Calculated): 111.33 Resp: 18 SpO2: 96 % O2 Device: None (Room air) AROM RLE (degrees) RLE AROM: WFL AROM LLE (degrees) LLE AROM : WFL Strength RLE Comment: Grossly weak 3+/5 Strength LLE Comment: Grossly weak 3+/5 Bed mobility Sit to Supine: Independent Bed Mobility Comments: Pt was standing at sink w nursing upon entry. Transfers Sit to Stand: Independent Stand to sit: Independent Ambulation Surface: level tile Device: No Device Assistance: Contact guard assistance Quality of Gait: Feet crossed midline multiple times. Would veer to the side on multiple occasions as well. Distance: 150 ft Comments: Noticeable increased WOB w ambulation. Required CGA as the pt was unsteady at times and required assist for safe ambulation. Stairs/Curb Stairs?: Yes Stairs # Steps : 10 Stairs Height: 6 Rails: Right ascending Device: No Device Assistance: Minimal assistance Comment: Required railing both ascending and descending. Min assist for safety and stability Balance Posture: Good Sitting - Static: Good Sitting - Dynamic: Good (Was able to reach down and doff socks without holding onto bed rail) Standing - Static: Fair;+ (Was able to stand at sink and brush teeth w supervision from nursing) Standing - Dynamic: Fair (Able to step over tele lines while holding onto bed rails) AM-PAC Score AM-PAC Inpatient Mobility Raw Score : 22 (02/04/22826) AM-PAC Inpatient T-Scale Score : 53.28 (02/04/22826) Mobility Inpatient CMS 0-100% Score: 20.91 (02/04/22826) Mobility Inpatient [facility] G-Code Modifier : CJ (02/04/22826) Goals Short Term Goals Short term goal 1: Pt will be able to ambulate 200 ft using LRD independently Short term goal 2: Pt will be able to negotiate 10 steps w supervision Patient Goals Patient goals : Not stated Education Patient Education Education Given To: Patient Education Provided: Role of Therapy;Plan of Care Education Method: Verbal Education Outcome: Verbalized understanding Therapy Time Individual Concurrent Group Co-treatment Time In 0810 Time Out 0821 Minutes 11 Patient s Physical Therapy Plan of Care supervision is transferred to [facility] Rehab Department Physical Therapist. Goals and/or treatment plan was established in collaboration with patient/family/other representatives. This SPT wore PPE according to hospital guidelines. Isabella Hicks SPT Associated attestation - Reed Michelle PT - 02/04/2022 11:26 AM EDT Plan to be activated only if patient is admitted or for assessing discharge needs. documented in this encounter [facility] Work Phone: 01-02-2022 Note Attestation signed by Dimitrios Saez DO at 01/02/2022 1:11 PM Attending Supervising Physician's Attestation Statement I performed a history and physical examination on the patient and discussed the management with the physician assistant professor of geography. I reviewed and agree with the findings and plan as documented in her note . [facility] Discharge Summary with Discharge DayProgress Note Dorothy Christiansen : 1935 ADMIT DATE: 12/31/2021 DISCHARGE DATE: 01/02/2022 PRIMARY CARE PHYSICIAN: Renae Winchseter DO VISIT STATUS: Observation CODE STATUS: Full Code DISCHARGE DIAGNOSES: Principal Problem: Debility Active Problems: Aortic stenosis, severe Caregiver stress Essential hypertension Dementia without behavioral disturbance (HCC) S/P TAVR (transcatheter aortic valve replacement) Resolved Problems: BRIAN (acute kidney injury) (HCC) Normal anion gap metabolic acidosis LEON (dyspnea on exertion) Confusion HOSPITAL COURSE: Pt is an 86 yo female with PMHx of s/p TAVR, HTN, HLD, vascular dementia presenting from the [place] ED d/t altered mental status and inability to care for self at home. Change in mental status was suspected 2/2 recent addition of namenda to medications as well as BRIAN in setting of progressing dementia w/ likely . When her namenda dose was decreased and BRIAN resolved, mental status returned to baseline throughout admission. Patient is being discharged home with home health care in stable condition plans to continue namenda taper and family agrees with plan. Understands importance of close follow up for re-evaluation and possible repeat vitals/labs/imaging. The problems as detailed below were addressed on admission. #Functional Decline and Debility #Vascular Dementia? -?Suspect 2/2 progressing dementia in setting of BRIAN (now resolved). No evidence of infection-UA WNL, urine culture negative. Mild basilar atelectasis on CXR and no hypoxia. LFT's WNL. WBC WNL? - Continue aricept. Decrease dose of namenda to 5mg BID per pharmacy recs - Home PT at discharge ? #LEON- ? 2/2 ?in setting of chronic deconditioning? - CXR no acute process and No hypoxia, leukocytosis.Troponin WNL x [address]-T changes ? #BRIAN (resolved)? #NAGMA (resolved)- Cr returned to baseline. Resume lisinopril at 20mg and hold dyazide at DC. Repeat BMP ? # s/p TAVR-?Continue ASA #HTN #HLD- Resumed lisinopril at 1/2 dose. Hold dyazide. Family agreeable to completing a BP log to bring to transitional care appt DAY OF DISCHARGE: Review of Systems Constitutional: Negative for appetite change. Respiratory: Negative for shortness of breath. Cardiovascular: Negative for chest pain. Gastrointestinal: Negative for abdominal pain. Neurological: Negative for dizziness and light-headedness. Subjective: pt states she is feeling well. Denies all pain and shortness of breath. Patient Vitals for the past 24 hrs: BP Temp Temp src Pulse Resp SpO2 Weight 01/02/22 1144 (!) 140/82 98.8 ?F (37.1 ?C) Temporal 79 17 95 % ? 01/02/22 0827 (!) 155/73 98.4 ?F (36.9 ?C) Temporal 91 14 95 % ? 01/02/22 0316 (!) 151/88 99 ?F (37.2 ?C) Temporal 72 16 94 % ? 01/02/22 0026 ? 146 lb 12.8 oz (66.6 kg) 01/01/22 2324 (!) 156/83 98.2 ?F (36.8 ?C) Temporal 78 16 96 % ? 01/01/22 1929 (!) 149/78 98.7 ?F (37.1 ?C) Temporal 67 18 95 % ? 01/01/22 1251 (!) 147/87 97.7 ?F (36.5 ?C) Temporal 68 18 93 % ? Average, Min, and Max for last 24 hours Vitals: TEMPERATURE: Temp Av.5 ?F (36.9 ?C) Min: 97.7 ?F (36.5 ?C) Max: 99 ?F (37.2 ?C) RESPIRATIONS RANGE: Resp Av.5 Min: 14 Max: 18 PULSE RANGE: Pulse Av.8 Min: 67 Max: 91 BLOOD PRESSURE RANGE: Systolic (24hrs), Av , Min:140 , Max:156 ; Diastolic (24hrs), Av, Min:73, Max:88 PULSE OXIMETRY RANGE: SpO2 Av.7 % Min: 93 % Max: 96 % No intake/output data recorded. Physical Exam Constitutional: General: She is not in acute distress. Appearance: She is not ill-appearing. Comments: Very pleasant and cooperative elderly female resting in bed, appears comfortable. Cardiovascular: Rate and Rhythm: Normal rate and regular rhythm. Pulses: Normal pulses. Heart sounds: Murmur heard. Pulmonary: Effort: Pulmonary effort is normal. Breath sounds: Normal breath sounds. Abdominal: General: Bowel sounds are normal. Palpations: Abdomen is soft. Musculoskeletal: Right lower leg: No edema. Left lower leg: No edema. Skin: General: Skin is warm and dry. Neurological: Mental Status: She is alert. Mental status is at baseline. Comments: A&O x 2, cannot state the year Psychiatric: Mood and Affect: Mood normal. Behavior: Behavior normal. PROCEDUR (more content not included)... [facility] 01-02-2022 History of Presen t illness Narrative Family Communication Number Called: [phone] Relationship to Patient: daughterNai Phone Call Outcome: I spoke with the individual listed above. Family L Tacker Updated on the Following: Reviewed medication changes and plan for follow up after discharge as well as ordering home care/home PT/OT. Nai was agreeable to the plan as outlined in the DC summary. Occupational Therapy Facility/Department: [facility] Occupational Therapy Initial Assessment Name: Dorothy Christiansen : 1935 Date of Service: 01/02/2022 Discharge Recommendations: (Anticipate return home with assist and [facility] OT and initial supervision of daughter with IADL's.) Patient Diagnosis(es): The primary encounter diagnosis was Debility. Diagnoses of Exertional dyspnea, Dementia without behavioral disturbance, unspecified dementia type (HCC), Essential hypertension, and Vascular dementia without behavioral disturbance (HCC) were also pertinent to this visit. Past Medical History: has a past medical history of Aortic stenosis, B12 deficiency, Cholelithiasis, Colon polyp, Diverticulosis of colon (without mention of hemorrhage), Headache(784.0), Hyperlipidemia, Hypertension, and Vascular dementia (HCC). Past Surgical History: has a past surgical history that includes Tubal ligation and Aortic valve replacement (2019). Assessment Performance deficits / Impairments: Decreased functional mobility ;Decreased endurance;Decreased ADL status;Decreased balance;Decreased strength;Decreased safe awareness;Decreased high-level IADLs;Decreased cognition Assessment: Pt presents with the above deficits and requires supervision with all bed mobility, supervision with transfers, CGA with functional mobility, supervision with ADL's. Anticipate return home with assist and C OT as long as pt's daughter initially provides supervision and/or assist regarding cooking due to safety awareness issues due to the pt's dementia. Decision Making: Medium Complexity REQUIRES OT FOLLOW-UP: Yes Activity Tolerance Activity Tolerance: Patient Tolerated treatment well Plan Plan Times per Week: 3-5x/wk Plan Weeks: 4 weeks Current Treatment Recommendations: Strengthening,Balance training,Functional mobility training,Endurance training,Patient/Caregiver education & training,Safety education & training,Cognitive reorientation,Coordination training,Self-Care / ADL,Home management training,Cognitive/Perceptual training Restrictions Restrictions/Precautions Restrictions/Precautions: Fall Risk Required Braces or Orthoses?: No Subjective General Chart Reviewed: Yes Patient assessed for rehabilitation services?: Yes Family / Caregiver Present: No Diagnosis: Debility, exertional dyspnea, dementia Subjective Subjective: Pt in bed. Agreeable to OT. General Comment Comments: Pt presents with increased confusion, inability to care for self at home, and difficulty ambulating. Social/Functional History Social/Functional History Lives With: Alone Type of Home: House (Bed & Bath (tub/shower) 2nd floor; 1/2 bath 1st floor) Home Layout: Two level Home Access: Stairs to enter with rails Entrance Stairs - Number of Steps: 4 then another 4 Entrance Stairs - Rails: Both Bathroom Shower/Tub: Tub/Shower unit Bathroom Toilet: Standard Bathroom Equipment: Grab bars in shower Home Equipment: (none) Receives Help From: Family ADL Assistance: Independent Homemaking Assistance: (min to mod) Homemaking Responsibilities: No Ambulation Assistance: Independent Transfer Assistance: Independent Active Preschool Lead Teacher: No Patient's Preschool Lead Teacher Info: n/a Mode of Transportation: Family Education: unknown Occupation: Retired IADL Comments: per dtr; minimal TV, lots of jigsaw puzzles. Pt does own laundry. Pt makes breakfast, but dtr brings lunch and dinner. Pt takes own shower Additional Comments: Per pt, indep with ADL's. Indep with cooking, cleaning, & laundry (1st floor). Indep with ambulation. Pt states that she still drives short distances if she needs too. Pt also states that she pays her own bills. Question validity of patient's answers as when I asked her if she lived in a 1-story or a 2-story home, she stated she didn't know. Objective Pain: None Safety Devices Type of Devices: All fall risk precautions in place;Call light within reach;Gait belt;Patient at risk for falls;Left in bed;Nurse notified Restraints Restraints Initially in Place: No Balance Sitting: (good Static sitting balance at EOB unsupported with supervision.) Standing: (good Static standing balance unsupported with CGA.) Gait Overall Level of Assistance: (Functional mobility without device with CGA. No LOB noted.) Toilet Transfers Equipment Used: Standard toilet Toilet Transfer: Supervision (with use of grab bar) Strength: (Bilateral UE: 4/5) Tone: Normal Sensation: (Bilateral UE: Pt denies any numbness and tingling in bilateral UE's. Intact to light touch.) ADL UE Dressing: (Doff/don bilateral socks seated at EOB using figure four technique with supervision.) Toileting: Supervision Bed mobility Supine to Sit: Supervision Sit to Supine: Supervision Scooting: Supervision Transfers Stand Step Transfers: Contact guard assistance Sit to stand: Supervision Stand to sit: Supervision Vision - Basic Assessment Prior Vision: (Pt wears reading glasses.) Cognition Cognition Comment: Pt with a h/o dementia. Education Given To: Patient Education Provided: Role of Therapy;Plan of Care;ADL Adaptive Strategies;Transfer Training;Orientation Education Method: Demonstration;Verbal Barriers to Learning: Cognition Education Outcome: Continued education needed LUE AROM (degrees) LUE AROM : WFL RUE AROM (degrees) RUE AROM : WFL OutComes Score AM-PAC Daily Activity Inpatient How much help for putting on and taking off regular lower body clothing?: A Little How much help for Bathing?: A Little How much help for Toileting?: None How much help for putting on and taking off regular upper body clothing?: None How much help for taking care of personal grooming?: None How much help for eating meals?: None AM-PAC Inpatient Daily Activity Raw Score: 22 AM-PAC Inpatient ADL T-Scale Score : 47.1 ADL Inpatient CMS 0-100% Score: 25.8 ADL Inpatient CMS G-Code Modifier : CJ AM-PAC Score AM-PAC Inpatient Daily Activity Raw Score: 22 (01/02/22 1224) AM-PAC Inpatient ADL T-Scale Score : 47.1 (01/02/22 1224) ADL Inpatient CMS 0-100% Score: 25.8 (01/02/22 1224) ADL Inpatient CMS G-Code Modifier : CJ (01/02/22 122) Goals Short Term Goals Time Frame for Short term goals: 4 weeks Short Term Goal 1: Static standing balance task x 3-5 mins with supervision. Short Term Goal 2: Functional mobility around room with supervision. Short Term Goal 3: Ox3 with min verbal cues and use of visual aides. Patient Goals Patient goals : None stated. Therapy Time Individual Concurrent Group Co-treatment Time In 1012 Time Out 1025 Minutes 13 Goals and/or treatment plan was established in collaboration with patient/family/other representatives. Patient's Occupational Therapy Plan of Care supervision is transferred to [facility] Occupational Therapist. This provider wore a KN95 and gloves for the duration of the session with this pt. Steffany Aquino MS, OTR/L Nutrition rescreen completed. Chart reviewed. Patient to be monitored and followed by the diet machining technician. Physical Therapy Facility/Department: [facility] Physical Therapy Initial Assessment Name: Dorothy Christiansen : 1935 Date of Service: 01/01/2022 Discharge Recommendations: Home with assist PRN,Home with Home health PT PT Equipment Recommendations Equipment Needed: No Patient Diagnosis(es): The primary encounter diagnosis was Debility. Diagnoses of Exertional dyspnea and Dementia without behavioral disturbance, unspecified dementia type (HCC) were also pertinent to this visit. Past Medical History: has a past medical history of Aortic stenosis, B12 deficiency, Cholelithiasis, Colon polyp, Diverticulosis of colon (without mention of hemorrhage), Headache(784.0), Hyperlipidemia, Hypertension, and Vascular dementia (HCC). Past Surgical History: has a past surgical history that includes Tubal ligation and Aortic valve replacement (2019). Assessment Body Structures, Functions, Activity Limitations Requiring Skilled Therapeutic Intervention: Decreased safe awareness;Decreased cognition Assessment: From a motor perspective, pt with only slight issues (e.g. firm heel strike on L)--pt does typically wear slipper socks at home and not shoes. PT's greatest concern is safety; dtr is frequently with patient. PT would recommend home PT for safety eval, but PT with no concerns from a PHYSICAL perspective re: going home. Therapy Prognosis: Good Decision Making: Low Complexity Requires PT Follow-Up: Yes (but would not hold disch) Activity Tolerance Activity Tolerance: Treatment limited secondary to decreased cognition Plan Plan Plan: 2-3 times per week Current Treatment Recommendations: Strengthening,ROM,Balance training,Transfer training,Gait training,Stair training,Cognitive/Perceptual training,Endurance training Safety Devices Type of Devices: Left in chair,Call light within reach (dtr to remain in room and will notifiy nursing if leaving) Restrictions Restrictions/Precautions Restrictions/Precautions: Fall Risk,General Precautions Required Braces or Orthoses?: No Subjective General Chart Reviewed: Yes Patient assessed for rehabilitation services?: Yes Family / Caregiver Present: Yes (dtr) Diagnosis: Altered mental status; wheezing Follows Commands: Within Functional Limits Subjective Subjective: per pt, she feels fine. Per dtr, she is much better than yesterday and is hoping for disch tomorrow. When asked questions about home, pt's accuracy is approx 25%. Pt denies any pain, SOB, dizziness. Dtr note several weeks ago, pt reported squiggly lines in her vision, but pt denies currently Social/Functional History Social/Functional History Lives With: Alone Type of Home: House Home Layout: Multi-level,Bed/Bath upstairs Home Access: Stairs to enter with rails Entrance Stairs - Number of Steps: 4 then another 4 Entrance Stairs - Rails: Both Bathroom Shower/Tub: Tub/Shower unit Bathroom Toilet: Standard Bathroom Equipment: Grab bars in shower Bathroom Accessibility: Accessible Home Equipment: (none) Receives Help From: Family ADL Assistance: Independent Homemaking Assistance: (min to mod) Homemaking Responsibilities: No Ambulation Assistance: Independent Transfer Assistance: Independent Active Preschool Lead Teacher: No Patient's Preschool Lead Teacher Info: n/a Mode of Transportation: Family Education: unknown Occupation: Retired IADL Comments: per dtr; minimal TV, lots of jigsaw puzzles. Pt does own laundry. Pt makes breakfast, but dtr brings lunch and dinner. Pt takes own shower Vision/Hearing Hearing: Within functional limits Cognition Cognition Cognition Comment: Pt w/ h/o dementia; follows directions in short term. Objective Pulse: 55 Heart Rate Source: Monitor BP: (!) 154/75 BP Location: Left Arm Patient Position: Supine MAP (Calculated): 101.33 Resp: 17 SpO2: 97 % O2 Device: None (Room air) (info pulled forward from previous nursing note) Observation/Palpation Observation: dtr notes a few weeks ago, she did have supraorbital ecchymosis (unsure how occurred). On R medial superior scapula, pt with slight edema and discoloration. Gross Assessment Tone: Normal Sensation: Intact AROM RLE (degrees) RLE AROM: WFL AROM LLE (degrees) LLE AROM : WFL AROM RUE (degrees) RUE AROM : WFL AROM LUE (degrees) LUE AROM : WFL Strength Other Other: hip extn good-, hip ABD fair+ emely, knee extn 4/5, ankles 4/5 Bed mobility Supine to Sit: Supervision Scooting: Supervision Bed Mobility Comments: exits bed to R at home Transfers Sit to Stand: Supervision Stand to sit: Supervision Ambulation Surface: level tile Device: No Device Assistance: Contact guard assistance Distance: 220' Comments: moderately firmer heel strike on L vs. R--however no major issue with weight shift and no obvious Trendelenburg. Stairs/Curb Stairs?: Yes Stairs # Steps : 3 Stairs Height: 6 Rails: Right ascending Assistance: Contact guard assistance Comment: ascends reciprocally and descends step-to (dtr notes she has never noted pt to perform that before) Balance Sitting - Static: Good Sitting - Dynamic: Good Standing - Static: Good Standing - Dynamic: -;Good Comments: pt able to retrieve object from floor AM-PAC Score AM-PAC Inpatient Mobility Raw Score : 21 (01/01/22 120) AM-PAC Inpatient T-Scale Score : 50.25 (01/01/221205) Mobility Inpatient CMS 0-100% Score: 28.97 (01/01/221205) Mobility Inpatient CMS G-Code Modifier : CJ (01/01/221205) Goals Short Term Goals Time Frame for Short term goals: 2 weeks Short term goal 1: 5 times sit to stand <30 sec indep Short term goal 2: Amb 250' indep Short term goal 3: 4 stairs, supv Short term goal 4: Stand 3 minutes, dynamic UE activity, supv Patient Goals Patient goals : to go home Therapy Time Individual Concurrent Group Co-treatment Time In 1120 Time Out 1138 Minutes 18 Patient s Physical Therapy Plan of Care supervision is transferred to [facility] Rehab Department Physical Therapist. Plan to be activated only if patient is admitted or for assessing discharge needs. Eliazar Bustillos PT documented in this encounter [facility] Work Phone: 01-02-2022 Hospital course Narrative Images from the original note were not included. [facility] Discharge Summary with Discharge DayProgress Note Dorothy Christiansen : 1935 ADMIT DATE: 12/31/2021 DISCHARGE DATE: 01/02/2022 PRIMARY CARE PHYSICIAN: Renae Winchester DO VISIT STATUS: Observation CODE STATUS: Full Code DISCHARGE DIAGNOSES: Principal Problem: Debility Active Problems: Aortic stenosis, severe Caregiver stress Essential hypertension Dementia without behavioral disturbance (HCC) S/P TAVR (transcatheter aortic valve replacement) Resolved Problems: BRIAN (acute kidney injury) (HCC) Normal anion gap metabolic acidosis LEON (dyspnea on exertion) Confusion HOSPITAL COURSE: Pt is an 86 yo female with PMHx of s/p TAVR, HTN, HLD, vascular dementia presenting from the [place] ED d/t altered mental status and inability to care for self at home. Change in mental status was suspected 2/2 recent addition of namenda to medications as well as BRIAN in setting of progressing dementia w/ likely sundowning. When her namenda dose was decreased and BRIAN resolved, mental status returned to baseline throughout admission. Patient is being discharged home with home health care in stable condition plans to continue namenda taper and family agrees with plan. Understands importance of close follow up for re-evaluation and possible repeat vitals/labs/imaging. The problems as detailed below were addressed on admission. #Functional Decline and Debility #Vascular Dementia - Suspect 2/2 progressing dementia in setting of BRIAN (now resolved). No evidence of infection-UA WNL, urine culture negative. Mild basilar atelectasis on CXR and no hypoxia. LFT's WNL. WBC WNL - Continue aricept. Decrease dose of namenda to 5mg BID per pharmacy recs - Home PT at discharge #LEON- ? 2/2 in setting of chronic deconditioning - CXR no acute process and No hypoxia, leukocytosis.Troponin WNL x [address]-T changes #BRIAN (resolved) #NAGMA (resolved)- Cr returned to baseline. Resume lisinopril at 20mg and hold dyazide at DC. Repeat BMP # s/p TAVR- Continue ASA #HTN #HLD- Resumed lisinopril at 1/2 dose. Hold dyazide. Family agreeable to completing a BP log to bring to transitional care appt DAY OF DISCHARGE: Review of Systems Constitutional: Negative for appetite change. Respiratory: Negative for shortness of breath. Cardiovascular: Negative for chest pain. Gastrointestinal: Negative for abdominal pain. Neurological: Negative for dizziness and light-headedness. Subjective: pt states she is feeling well. Denies all pain and shortness of breath. Patient Vitals for the past 24 hrs: BP Temp Temp src Pulse Resp SpO2 Weight 01/02/22 1144 (!) 140/82 98.8 F (37.1 C) Temporal 79 17 95 % 01/02/22 0827 (!) 155/73 98.4 F (36.9 C) Temporal 91 14 95 % 01/02/22 0316 (!) 151/88 99 F (37.2 C) Temporal 72 16 94 % 01/02/22 0026 146 lb 12.8 oz (66.6 kg) 01/01/22 2324 (!) 156/83 98.2 F (36.8 C) Temporal 78 16 96 % 01/01/22 1929 (!) 149/78 98.7 F (37.1 C) Temporal 67 18 95 % 01/01/22 1251 (!) 147/87 97.7 F (36.5 C) Temporal 68 18 93 % Average, Min, and Max for last 24 hours Vitals: TEMPERATURE: Temp Av.5 F (36.9 C) Min: 97.7 F (36.5 C) Max: 99 F (37.2 C) RESPIRATIONS RANGE: Resp Av.5 Min: 14 Max: 18 PULSE RANGE: Pulse Av.8 Min: 67 Max: 91 BLOOD PRESSURE RANGE: Systolic (24hrs), Av , Min:140 , Max:156 ; Diastolic (24hrs), Av, Min:73, Max:88 PULSE OXIMETRY RANGE: SpO2 Av.7 % Min: 93 % Max: 96 % No intake/output data recorded. Physical Exam Constitutional: General: She is not in acute distress. Appearance: She is not ill-appearing. Comments: Very pleasant and cooperative elderly female resting in bed, appears comfortable. Cardiovascular: Rate and Rhythm: Normal rate and regular rhythm. Pulses: Normal pulses. Heart sounds: Murmur heard. Pulmonary: Effort: Pulmonary effort is normal. Breath sounds: Normal breath sounds. Abdominal: General: Bowel sounds are normal. Palpations: Abdomen is soft. Musculoskeletal: Right lower leg: No edema. Left lower leg: No edema. Skin: General: Skin is warm and dry. Neurological: Mental Status: She is alert. Mental status is at baseline. Comments: A&O x 2, cannot state the year Psychiatric: Mood and Affect: Mood normal. Behavior: Behavior normal. PROCEDURES: CONSULTANTS: Geriatrics DISCHARGE MEDICATIONS: Significant Medication Changes: Namenda dose decreased, plan to slowly taper off Lisinopril dose decreased and dyazide held 2/2 poor renal function, resume as indicated Medication List CHANGE how you take these medications lisinopril 40 MG tablet Commonly known as: PRINIVIL;ZESTRIL Take 0.5 tablets by mouth daily TAKE 1 TABLET BY MOUTH DAILY What changed: how much to take how to take this when to take this memantine 10 MG tablet Commonly known as: NAMENDA Take 0.5 tablets by mouth 2 times daily TAKE 1 TABLET BY MOUTH TWICE A DAY What changed: how much to take how to take this when to take this CONTINUE taking these medications aspirin 81 MG tablet calcium carbonate 600 MG Tabs tablet donepezil 10 MG tablet Commonly known as: ARICEPT TAKE 1 TABLET BY MOUTH DAILY vitamin B-12 1000 MCG tablet Commonly known as: CYANOCOBALAMIN vitamin D 1000 UNIT Tabs tablet Commonly known as: CHOLECALCIFEROL STOP taking these medications triamterene-hydroCHLOROthiazide 37.5-25 MG per capsule Commonly known as: DYAZIDE Where to Get Your Medications Information about where to get these medications is not yet available Ask your nurse or doctor about these medications lisinopril 40 MG tablet memantine 10 MG tablet DIET:regular ACTIVITY: up with assistance SIGNIFICANT DIAGNOSTIC STUDIES: CXR- mild R>L basilar atelectasis. COMPLEXITY OF FOLLOW UP: [x] Moderate Complexity:follow up within 7-14 calendar days (68391) [] Severe Complexity: follow up within 7 calendar days (71273) FOLLOW UP TESTING, PENDING RESULTS OR REFERRALS AT TRANSITIONAL CARE VISIT: [x] Yes - Recommend repeat BMP. Monitor Creatinine closely and resume lisinopril and/or dyazide as tolerated - Memantine dose decreased, would recommend slow taper off med d/t increased confusion [] No DISPOSITION: Home FACILITY/HOME CARE AGENCY NAME: Home care Follow up with Renae Winchester DO scheduled Notification (telephone encounter) to PCP initiated: [x] Yes [] No INSTRUCTIONS TO MA/SW: Please call patient on day after discharge (must document patient contacted within 2 business days of discharge). FOLLOW UP QUESTIONS FOR MA/SW: 1. Did you get medications filled and taking them as instructed fromdischarge? 2. Are you following your discharge instructions from your hospital stay? 3. Please confirm patient is scheduled for a follow up appointment within the above time frame. DISCHARGE TIME: > 30minutes Electronically signed by CARROL English on01/02/22 at 11:52 AM EDT Associated attestation - Dimitrios Saez DO - 01/02/2022 1:11 PM EDT Attending Supervising Physician's Attestation Statement I performed a history and physical examination on the patient and discussed the management with the physician assistant professor of geography. I reviewed and agree with the findings and plan as documented in her note . documented in this encounter [facility] Work Phone: documented in this encounter [facility] Work Phone: Evaluation note* Diagnosis Debility- Primary Debility, unspecified Exertional dyspnea Other dyspnea and respiratory abnormality Dementia without behavioral disturbance, unspecified dementia type (HCC) Essential hypertension Unspecified essential hypertension Vascular dementia without behavioral disturbance (HCC) Vascular dementia, uncomplicated Aortic stenosis, severe Aortic valve disorders S/P TAVR (transcatheter aortic valve replacement) BRIAN (acute kidney injury) (HCC) Acute kidney failure, unspecified Normal anion gap metabolic acidosis LEON (dyspnea on exertion) Other dyspnea and respiratory abnormality Confusion Unspecified psychosis Caregiver stress Other health problem within the family documented in this encounter [facility] Work Phone: Evaluation note* Diagnosis Uncontrolled hypertension- Primary Unspecified essential hypertension Elevated troponin Other abnormal blood chemistry Essential hypertension Unspecified essential hypertension Dementia without behavioral disturbance (HCC) Dementia, unspecified, without behavioral disturbance S/P TAVR (transcatheter aortic valve replacement) Anemia Anemia, unspecified documented in this encounter [facility] Work Phone: Evaluation note* Diagnosis Cellulitis of left elbow- Primary documented in this encounter [facility] Discharge instructions* Instructions* Jessica Castillo PA - 01/02/2022 Images from the original note were not included. Physician discharge instructions: Dear Ms. Christiansen, Thank you for allowing me to be a part of the team that provided your medical care during this hospital stay. Here is a brief summary of what we found and instructions for you as you leave the hospital. Reason(s) for hospital stay: You were seen in the hospital for confusion. This was likely a multifactorial issue (slower than normal kidney function, new namenda prescription). Your kidney function returned to baseline, however several changes to your medications were made. You can resume taking lisinopril at 20 mg daily instead of your previous dose of 40mg daily. Please do not take dyazide for now. Do not throw these medications away as your primary care provider may decide to resume them. At your follow up appointment, labs will be repeated to determine which medications should be resumed. As discussed, please use an electronic blood pressure cuff to record pressures twice daily in a log to bring to this appointment. The dose of your namenda was reduced in the hospital from 10mg twice daily to 5mg twice daily. The plan is to slowly taper off this medication as it could have been contributing to increased confusion. Discharge instructions: - Please attend all follow-up appointments as scheduled. - Please bring a medication list and all of your medications to your appointments. - Please take all medications exactly as prescribed in these instructions. If your symptoms return or worsen, please seek immediate medical attention. Thank you for allowing me to be part of your care. I hope you continue to feel better soon. CARROL English [facility] Hospital Medicine Program Please note: You were cared for by a hospitalist during your hospital stay. Once you are discharged, your primary care physician will handle any further medical issues. Please note that no refills for any discharge medications will be authorized once you are discharged, as it is imperative that youreturn to your primary care physician (or establish a relationship with a primary care physician ifyou do not have one) for your aftercare needs so that they can reassess your need for medications and monitor your lab values. Your primary care physician should be able to send refills for medications after your follow up appointment. documented in this encounter[facility] Work Phone: Reason for Referral Status Reason Specialty Diagnoses / Procedures Referre d By Contact Referred To Contact [facility] Diagnoses Aortic stenosis, severe Procedures ECHO Complete 2D W Doppler W Color Imani Wheatley, RIC - FILEMAKER DEVELOPER [address] [place] [address] Assessments Diagnosis Aortic stenosis, severe Aortic valve disorders Diagnosis Syncope and collapse S/P TAVR (transcatheter aortic valve replacement) Essential hypertension Unspecified essential hypertension Dementia without behavioral disturbance (HCC) Dementia, unspecified, without behavioral disturbance Orthostatic hypotension Diagnosis Essential hypertension Unspecified essential hypertension Advance Directives No Advanced Directives Records FoundDocuments on File Type Date Recorded Patient L Tacker Expl anation Advance Directives and Living Will Power of Binding End Stitcher Latest Code Status on File Code Status Date Activated Date Inactivated Comments Full Code 10/19/2018 9:39 AM 10/20/2018 5:35 PM Full Code 10/19/2018 5:52 AM 10/19/2018 8:35 AM Full Code 09/25/2018 1:21 PM 09/25/2018 5:22 PM Full Code 09/25/2018 9:04 AM 09/25/2018 1:21 PM Documents on File Type Date Recorded Patient L Tacker Expl anation Advance Directives and Living Will Power of Binding End Stitcher Latest Code Status on File Code Status Date Activated Date Inactivated Comments Full Code 10/29/2019 2:09 AM Full Code 10/19/2018 9:39 AM 10/20/2018 5:35 PM Full Code 10/19/2018 5:52 AM 10/19/2018 8:35 AM Full Code 09/25/2018 1:21 PM 09/25/2018 5:22 PM Full Code 09/25/2018 9:04 AM 09/25/2018 1:21 PM Latest Code Status on File Code Status Date Activated Date Inactivated Comments Full Code 10/29/2019 2:09 AM 10/29/2019 6:48 PM Latest Code Status on File Code Status Date Activated Date Inactivated Comments Full Code 10/19/2018 9:39 AM 10/20/2018 5:35 PM Documents on File Type Date Recorded Patient L Tacker Expl anation ACP-Advance Directive ACP-Power of Binding End Stitcher Latest Code Status on File Code Status Date Activated Date Inactivated Comments Full Code 01/01/2022 2:56 AM Full Code 10/29/2019 2:09 AM 10/29/2019 6:48 PM Documents on File Type Date Recorded Patient L Tacker Expl anation ACP-Advance Directive ACP-Power of Binding End Stitcher ACP-Advance Directive 01/04/2022 8:52 AM Latest Code Status on File Code Status Date Activated Date Inactivated Comments Full Code 02/03/2022 11:38 PM Full Code 01/01/2022 2:56 AM 01/02/2022 3:39 PM Documents on File Type Date Recorded Patient L Tacker Expl anation ACP-Advance Directive 01/04/2022 8:52 AM Latest Code Status on File Code Status Date Activated Date Inactivated Comments Full Code 02/03/2022 11:38 PM 02/04/2022 5:51 PM Summary Purpose Family History No Family History Records FoundNo Family History Records FoundNo Family History Records FoundNo Family History Records FoundNo Family History Records Found Hospital Course * Bong Kaur PA-C - 10/29/2019 3:12 PM EST [facility] Discharge Summary and Transition Note Dorothy Christiansen : 1935 ADMIT DATE: 10/29/2019 DISCHARGE DATE: 10/29/2019 PRIMARY CARE PHYSICIAN: Lexus Pozo MD VISIT STATUS: Observation CODE STATUS: Full Code DISCHARGE DIAGNOSES: Active Problems: Essential hypertension Dementia without behavioral disturbance (HCC) S/P TAVR (transcatheter aortic valve replacement) Resolved Problems: Syncope and collapse HOSPITAL COURSE: Patient is an 84 y/o F with PMHx Aortic stenosis s/p TAVR 2019, HTN, HLD, vascular dementia, who presents with complaints of unresponsive episode x 5 minutes as witnessed by family. Prior to this episode patient was out weeding her garden all day and family endorsed poor fluid intake. Orthostatics positive with mild BRIAN and troponin 0.040. She was given small fluid bolus and felt back to baseline. She had recently normal echo last month and no EKG changes or tele abnormalities. She was encouraged to increase her PO intake and make slow position changes. She has PCP follow up scheduled and wasdischarged home in stable condition. PROCEDURES: DIRK CONSULTANTS: DIRK DISCHARGE MEDICATIONS: Significant Medication Changes: Dorothy Mohan Home Medication Instructions [place]:[id number] Printed on:10/29/19 8260 Medication Information aspirin 81 MG tablet Take 81 mg by mouth daily calcium carbonate 600 MG TABS tablet Take 1 tablet by mouth daily Cyanocobalamin (VITAMIN B12) 3000 MCG/ML LIQD Take 1,000 mcg by mouth donepezil (ARICEPT) 10 MG tablet TAKE ONE TABLET BY MOUTH NIGHTLY lisinopril (PRINIVIL;ZESTRIL) 40 MG tablet Take 1 tablet by mouth daily niacin 500 MG extended release capsule Take 1 capsule by mouth nightly triamterene-hydrochlorothiazide (DYAZIDE) 37.5-25 MG per capsule TAKE ONE CAPSULE BY MOUTH EVERY MORNING vitamin D (CHOLECALCIFEROL) 1000 UNIT TABS tablet Take 400 Units by mouth daily DIET: regular ACTIVITY: resume regular activity SIGNIFICANT DIAGNOSTIC STUDIES: EKG, CT head (OSH) COMPLEXITY OF FOLLOW UP: [x] Moderate Complexity: follow up within 7-14 calendar days (82622) [] Severe Complexity: follow up within 7 calendar days (69478) FOLLOW UP TESTING, PENDING RESULTS OR REFERRALS AT TRANSITIONAL CARE VISIT: [x] Yes consider cardiology f/u for holter monitoring [] No DISPOSITION: Home FACILITY/HOME CARE AGENCY NAME: NA Follow up with Lexus Pozo MD scheduled Notification (telephone encounter) to PCP initiated: [x] Yes [] No INSTRUCTIONS TO MA/SW: Please call patient on day after discharge (must document patient contacted within 2 business days of discharge). FOLLOW UP QUESTIONS FOR MA/SW: 1. Did you get medications filled and taking them as instructed from discharge? 2. Are you following your discharge instructions from your hospital stay? 3. Please confirm patient is scheduled for a follow up appointment within the above time frame. DISCHARGE TIME: > 30 minutes Associated attestation - Irma Berry MD - 10/29/2019 3:46 PM EST Attending Supervising Physician's Attestation Statement I performed a history and physical examination on the patient and discussed the management with thephysician assistant professor of geography. I reviewed and agree with the findings and plan as documented in her note . See H&P for today's date. Okay for discharge. Suspect ?syncope/decreased responsiveness element of dehydration. +orthostatics. Asymptomatic in all aspects in hospital. EKG unremarkable. To follow-up for possible Holter. Total time spent d/w family (dtr at bedside), patient and Natasha GERMAIN > 30 minutes. documented in this encounter Discharge Instructions * Discharge Instr - Activity* Nargis Bautista RN - 10/29/2019 3:06 PM EST As tolerated * Discharge Instr - Diet* Nargis Bautista RN - 10/29/2019 3:06 PM EST ? Good nutrition is important when healing from an illness, injury, or surgery. Follow any nutrition recommendations given to you during your hospital stay. ? If you were given an oral nutrition supplement while in the hospital, continue to take this supplement at home. You can take it with meals, in-between meals, and/or before bedtime. These supplements can be purchased at most local grocery stores, pharmacies, and chain super-stores. ? If you have any questions about your diet or nutrition, call the hospital and ask for the dietitian. CONTINUE HOME DIET * Additional Instructions* Bong Kaur PA-C - 10/29/2019 Increase fluid intake to prevent dehydration. Monitor BP at home and follow up with PCP 11/05/19. Consider following up with cardiology for holter monitoring to rule out cardiac arrhythmia. documented in this encounter History of Present Illness * Nargis Bautista RN - 10/29/2019 4:01 PM EST 1545 Discharge instructions given to patient and daughter who verbalize understanding. F/u appointment remind and given in her d/c papers. Pt left the floor in a wheelchair, all belongings collected with pt. documented in this encounter Additional Source Comments INFORMATION SOURCE (unrecogn ized section and content) DATE CREATED AUTHOR AUTHOR'S ORGANIZ ATION 04/23/2022 [facility] DATE CREATED AUTHOR AUTHOR'S ORGANIZ ATION 05/01/2022 [facility] CREATED AUTHOR AUTHOR'S ORGANIZ ATION 01/05/2023 [facility] CREATED AUTHOR AUTHOR'S ORGANIZ ATION 08/02/2023 [facility] Reason for Visit (unrecogniz ed section and content) Reason Comments Altered Mental Status Wheezing Reason Comments Other pt arrived with antonia hanna. family states pt blood pressure has been over 200 all day. pt R eye is very red, possible burst blood vessel. pt also c/o R ankl;e pain. pt is concerned for a blood clot. pt takes apirin Eye Pain Ankle Pain Reason Comments Mass Lump on left elbow, painful, red, swelling x 1 week Ordered Prescriptions (unrec ognized section and content) Prescription Sig Dispensed Refills Start Date End Da te amLODIPine (NORVASC) 5 MG tablet Take 1 tablet by mouth daily 30 tablet 0 02/05/2022 lisinopril (PRINIVIL;ZESTRIL) 40 MG tabletIndications:Essentia l hypertension Take 1 tablet by mouth daily TAKE 1 TABLET BY MOUTH DAILY 30 tablet 0 02/04/2022 Scheduled Active and Recently Administ ered Medications (unrecognized section and content) PRN Medication Order 12/31/2021 01/01/2022 01/02/2022 0.9 % sodium chloride infusion IntraVENous, at 5-250 mL/hr, PRN, if patient receiving piggyback infusions and maintenance fluids are not ordered OR KVO fluids to protect IV site / prevent frequent line interruptions/ long duration, Starting on Fri01/01/22 at 0256, For piggyback infusion, administer at same rate as piggyback for a total of 25 mL. Enter 25 mL into dose field and piggyback rate into rate field of order. If piggyback is infusing at a rate less than 100 mL/hr, enter 25 mL into dose field and 100 mL/hr into rate field of order. For KVO fluids, enter rate of 20 mL/hr or less into rate field of order. acetaminophen (TYLENOL) suppository 650 mg(Linked Group 1) 650 mg, Rectal, EVERY 6 HOURS PRN, Starting on Fri01/01/22 at 0256, Until Discontinued, Pain Mild (1-3), Fever, For temp greater than 100.4 F (38 C), Administer if oral route cannot be used. acetaminophen (TYLENOL) tablet 650 mg(Linked Group 1) 650 mg, Oral, EVERY 6 HOURS PRN, Starting on Fri01/01/22 at 0256, Until Discontinued, Pain Mild (1-3), Fever, For temp greater than 100.4 F (38 C), Maximum dose of acetaminophen is 4000 mg from all sources in 24 hours. hydrALAZINE (APRESOLINE) injection 5 mg 5 mg, IntraVENous, EVERY 6 HOURS PRN, Starting on Fri01/01/22 at 0844, Until Discontinued, High Blood Pressure, SBP> 160 melatonin tablet 5 mg 5 mg, Oral, NIGHTLY PRN, Starting on Fri01/01/22 at 0256, Until Discontinued, Sleep ondansetron (ZOFRAN) injection 4 mg(Linked Group 2) 4 mg, IntraVENous, EVERY 6 HOURS PRN, Starting on Fri01/01/22 at 255, Until Discontinued, Nausea, Vomiting, Administer if oral route cannot be used. ondansetron (ZOFRAN-ODT) disintegrating tablet 4 mg(Linked Group 2) 4 mg, Oral, EVERY 8 HOURS PRN, Starting on Fri01/01/22 at 255, Until Discontinued, Nausea, Vomiting polyethylene glycol (GLYCOLAX) packet 17 g 17 g, Oral, DAILY PRN, Starting on Fri01/01/22 at 255, Until Discontinued, Constipation, First line therapy for constipation sodium chloride flush 0.9 % injection 5-40 mL 5-40 mL, IntraVENous, PRN, Starting on Fri01/01/22 at 255, Until Discontinued, Line Care, After every IV line use, For Line Patency: Peripheral IV = 5 mL; Midline or Central Line = 10 mL/lumen. If following IV push medication, administer flush at same rate as the IV push. Flush volume is determined by type of infusion therapy being given. For non-viscous solutions use: Peripheral IV = 5 mL Midline or Central Line = 10 mL/lumen For viscous solutions (i.e. blood components, parenteral nutrition, contrast media, or after obtaining blood sample) use: Peripheral IV = 10 mL Midline or Central Line = 20 mL/lumen Linked Groups Order Group 1: acetaminophen (TYLENOL) tablet 650 mgJump to med 650 mg, Oral, EVERY 6 HOURS PRN, Starting on Fri01/01/22 at 255, Until Discontinued, Pain Mild (1-3), Fever, For temp greater than 100.4 F (38 C)
Maximum dose of acetaminophen is 4000 mg from all sources in 24 hours.
Or acetaminophen (TYLENOL) suppository 650 mgJump to med 650 mg, Rectal, EVERY 6 HOURS PRN, Starting on Fri01/01/22 at 255, Until Discontinued, Pain Mild (1-3), Fever, For temp greater than 100.4 F (38 C)
Administer if oral route cannot be used.
Group 2: ondansetron (ZOFRAN-ODT) disintegrating tablet 4 mgJump to med 4 mg, Oral, EVERY 8 HOURS PRN, Starting on Fri01/01/22 at 0256, Until Discontinued, Nausea, Vomiting Or ondansetron (ZOFRAN) injection 4 mgJump to med 4 mg, IntraVENous, EVERY 6 HOURS PRN, Starting on Fri01/01/22 at 0256, Until Discontinued, Nausea, Vomiting
Administer if oral route cannot be used.
Scheduled Medication Order 02/02/2022 02/03/2022 02/04/2022 amLODIPine (NORVASC) tablet 5 mg 5 mg, Oral, DAILY, First dose on Fri02/04/22 at 1030, Until Discontinued 104 (Given - Provid er: Cici Baez RN) aspirin chewable tablet 81 mg 81 mg, Oral, DAILY, First dose on Fri02/04/22 at 0900, Until Discontinued 851 (Given - Provid er: Cici Baez RN) atorvastatin (LIPITOR) tablet 80 mg 80 mg, Oral, NIGHTLY, First dose on Fri02/04/22 at 0000, Until Discontinued 2348 (Given - Provider: Annia Edwards RN) 2100 (Due) calcium carbonate (TUMS) chewable tablet 500 mg 500 mg (1 tablet), Oral, DAILY, First dose on Fri02/04/22 at 0900, Until Discontinued, Subst for Calcium Carbonate 600mg 851 (Given - Provid er: Cici Baez RN) donepezil (ARICEPT) tablet 10 mg 10 mg, Oral, DAILY, First dose on Fri02/04/22 at 0800, Until Discontinued 851 (Given - Provid er: Cici Baez RN) enoxaparin (LOVENOX) injection 40 mg 40 mg, SubCUTAneous, DAILY, First dose on Fri02/04/22 at 0900, Until Discontinued, Indication of Use: Prophylaxis-DVT/PE 851 (Given - Provid er: Cici Baez RN) lisinopril (PRINIVIL;ZESTRIL) tablet 40 mg 40 mg, Oral, DAILY, First dose on Fri02/04/22 at 0900, Until Discontinued 851 (Given - Provid er: Cici Baez RN) LORazepam (ATIVAN) tablet 0.5 mg (COMPLETED) 0.5 mg, Oral, ONCE, 1 dose, On Fri02/04/22 at 0030 0018 (Given - Provid er: Annia Edwards RN) memantine (NAMENDA) tablet 5 mg 5 mg, Oral, DAILY, First dose on Fri02/04/22 at 0900, Until Discontinued 851 (Given - Provid er: Cici Baez RN) sodium chloride flush 0.9 % injection 3 mL(Linked Group 1) 3 mL, IntraVENous, EVERY 8 HOURS, First dose on Fri02/03/22 at 2015, Until Discontinued, Flush line with 3-5 mL 2014 (Due) 0 (Not Given - Provider: Annia Edwards RN - Reason: Other)111 (Not Given - Provider: Cici Baez RN - Reason: Other)2014 (Due) sodium chloride flush 0.9 % injection 5-40 mL 5-40 mL, IntraVENous, EVERY 12 HOURS SCHEDULED (2 times per day), First dose on Fri02/04/22 at 0900, Until Discontinued, For Line Patency: Peripheral IV = 5 mL; Midline or Central Line = 10 mL/lumen. If following IV push medication, administer flush at same rate as the IV push. Flush volume is determined by type of infusion therapy being given. For non-viscous solutions use: Peripheral IV = 5 mL Midline or Central Line = 10 mL/lumen For viscous solutions (i.e. blood components, parenteral nutrition, contrast media, or after obtaining blood sample) use: Peripheral IV = 10 mL Midline or Central Line = 20 mL/lumen 851 (Given - Provid er: Cici Baez RN)2100 (Due) vitamin B-12 (CYANOCOBALAMIN) tablet 1,000 mcg 1,000 mcg, Oral, DAILY, First dose on Fri02/04/22 at 0900, Until Discontinued 851 (Given - Provid er: Cici Baez RN) vitamin D (CHOLECALCIFEROL) tablet 1,000 Units Labeling may look different. 25 vcn=1275 Units. Please double check dosages., 1,000 Units, Oral, DAILY, First dose on Fri02/04/22 at 0900, Until Discontinued 851 (Given - Provid er: Cici Baez, RACH) PRN Medication Order 02/02/2022 02/03/2022 02/04/2022 0.9 % sodium chloride infusion IntraVENous, at 5-250 mL/hr, PRN, if patient receiving piggyback infusions and maintenance fluids are not ordered OR KVO fluids to protect IV site / prevent frequent line interruptions/ long duration, Starting on 02/03/22 at 2338, For piggyback infusion, administer at same rate as piggyback for a total of 25 mL. Enter 25 mL into dose field and piggyback rate into rate field of order. If piggyback is infusing at a rate less than 100 mL/hr, enter 25 mL into dose field and 100 mL/hr into rate field of order. For KVO fluids, enter rate of 20 mL/hr or less into rate field of order. acetaminophen (TYLENOL) suppository 650 mg(Linked Group 2) 650 mg, Rectal, EVERY 6 HOURS PRN, Starting on 02/03/22 at 2338, Until Discontinued, Pain Mild (1-3), Fever, For temp greater than 100.4 F (38 C), Administer if oral route cannot be used. acetaminophen (TYLENOL) tablet 650 mg(Linked Group 2) 650 mg, Oral, EVERY 6 HOURS PRN, Starting on 02/03/22 at 2338, Until Discontinued, Pain Mild (1-3), Fever, For temp greater than 100.4 F (38 C), Maximum dose of acetaminophen is 4000 mg from all sources in 24 hours. labetalol (NORMODYNE;TRANDATE) injection 10 mg 10 mg, IntraVENous, EVERY 4 HOURS PRN, Starting on 02/03/22 at 2338, Until Discontinued, High Blood Pressure, SBP > 160 2349 (Given - Provider: Annia Edwards, RACH) nitroGLYCERIN (NITROSTAT) SL tablet 0.4 mg 0.4 mg, SubLINGual, EVERY 5 MIN PRN, Starting on 02/03/22 at 2338, Until Discontinued, Chest pain, Place 1 tablet under tongue upon chest pain, wait 5 minutes and may repeat up to 3 doses in 15 minutes. Do not crush or break. ondansetron (ZOFRAN) injection 4 mg(Linked Group 3) 4 mg, IntraVENous, EVERY 6 HOURS PRN, Starting on 02/03/22 at 2338, Until Discontinued, Nausea, Vomiting, Administer if oral route cannot be used. ondansetron (ZOFRAN-ODT) disintegrating tablet 4 mg(Linked Group 3) 4 mg, Oral, EVERY 8 HOURS PRN, Starting on 02/03/22 at 2338, Until Discontinued, Nausea, Vomiting polyethylene glycol (GLYCOLAX) packet 17 g 17 g, Oral, DAILY PRN, Starting on 02/03/22 at 2338, Until Discontinued, Constipation, First line therapy for constipation sodium chloride flush 0.9 % injection 5-40 mL 5-40 mL, IntraVENous, PRN, Starting on 02/03/22 at 2338, Until Discontinued, Line Care, After every IV line use, For Line Patency: Peripheral IV = 5 mL; Midline or Central Line = 10 mL/lumen. If following IV push medication, administer flush at same rate as the IV push. Flush volume is determined by type of infusion therapy being given. For non-viscous solutions use: Peripheral IV = 5 mL Midline or Central Line = 10 mL/lumen For viscous solutions (i.e. blood components, parenteral nutrition, contrast media, or after obtaining blood sample) use: Peripheral IV = 10 mL Midline or Central Line = 20 mL/lumen Linked Groups Order Group 1: Saline lock IV (COMPLETED) Routine, CONTINUOUS, Starting on Fri02/03/22 at 2014, Until Specified And sodium chloride flush 0.9 % injection 3 mLJump to med 3 mL, IntraVENous, EVERY 8 HOURS, First dose on Fri02/03/22 at 2014, Until Discontinued
Flush line with 3-5 mL
Group 2: acetaminophen (TYLENOL) tablet 650 mgJump to med 650 mg, Oral, EVERY 6 HOURS PRN, Starting on 02/03/22 at 2338, Until Discontinued, Pain Mild (1-3), Fever, For temp greater than 100.4 F (38 C)
Maximum dose of acetaminophen is 4000 mg from all sources in 24 hours.
Or acetaminophen (TYLENOL) suppository 650 mgJump to med 650 mg, Rectal, EVERY 6 HOURS PRN, Starting on 02/03/22 at 2338, Until Discontinued, Pain Mild (1-3), Fever, For temp greater than 100.4 F (38 C)
Administer if oral route cannot be used.
Group 3: ondansetron (ZOFRAN-ODT) disintegrating tablet 4 mgJump to med 4 mg, Oral, EVERY 8 HOURS PRN, Starting on 02/03/22 at 2338, Until Discontinued, Nausea, Vomiting Or ondansetron (ZOFRAN) injection 4 mgJump to med 4 mg, IntraVENous, EVERY 6 HOURS PRN, Starting on 02/03/22 at 2338, Until Discontinued, Nausea, Vomiting
Administer if oral route cannot be used.
Care Teams (unrecognized sec tion and content) [employer] Relationship Specialty Start Date End Date Renae Winchester, [address] [address] PCP - General Internal Medicine 12/25/20 [employer] Relationship Specialty Start Date End Date Renae Winchester DO [address] [place], [place] [id number] PCP - General Internal Medicine 12/25/20 [employer] Relationship Specialty Start Date End Date Lexus Pozo PCP - General Internal Medicine 02/01/18 Source Comments (unrecognize d section and content) In the event this informatio n is protected by the Federal Confidentiality of Alcohol and Drug Abuse Patient Records regulations: The Federal rules restrict any use of the information to criminally investigate or prosecute any alcohol or drug abuse patient.[facility] FOR RECORDS PERTAINING TO PATIENTS WHO ARE OR HAVE BEEN ENROLLED IN A CHEMICAL DEPENDENCY/SUBSTANCEABUSE PROGRAM, SOME INFORMATION MAY BE OMITTED. This clinical summary was aggregated from multiple sources. Caution should be exercised in using it in the provision of clinical care. This summary normalizes information from multiple sources, and as a consequence, information in this document may materially change the coding, format and clinical context of patient data. In addition, data may be omitted in some cases. CLINICAL DECISIONS SHOULD BE BASED ON THE PRIMARY CLINICAL RECORDS. [facility]. provides no warranty or guarantee of the accuracy or completeness of information in this document.
[2023-09-01 09:20] LABS: Anion Gap 7 (5-15); BUN 33 mg/dL (7-18); Chloride 111 mmol/L (98-107); Creatinine, Serum 1.22 mg/dL (0.55-1.02); EST Glomerular Filtration Rate 44 mL/min (>60); Est Glom Filt Rate - Afr Amer 53 mL/min (>60); Glucose 94 mg/dL (74-106); Potassium 3.6 mmol/L (3.5-5.1); Sodium Level 141 mmol/L (136-145)
== END ==
LOC: OLS.BROOKB 05:00
PROVIDERS: PCP Family Medicine; Visit Provider Family Medicine
DX: D64.9 Anemia, unspecified (principal); F03.90 Unspecified dementia, unspecified severity, without behavioral disturbance, psychotic disturbance, mood disturbance, and anxiety
CPT/HCPCS: 36415; 80048

== ENCOUNTER → 2024-02-27 | Outpatient (REF) | payer MEDICARE, SELFPAY ==
[2024-02-27 09:25] LABS: Vitamin B12 582 pg/mL (211-911)
[2024-02-27 10:22] LABS: Anion Gap 7 (5-15); BUN 27 mg/dL (7-18); BUN/Creat Ratio 22.9 RATIO (10-20); Calcium,Total 9.2 mg/dL (8.5-10.1); Chloride 109 mmol/L (98-107); Creatinine, Serum 1.18 mg/dL (0.55-1.02); EST Glomerular Filtration Rate 46 mL/min (>60); Est Glom Filt Rate - Afr Amer 55 mL/min (>60); Glucose 94 mg/dL (74-106); Potassium 3.9 mmol/L (3.5-5.1); Sodium Level 141 mmol/L (136-145)
== END ==
LOC: OLS.BROOKB 04:00
PROVIDERS: PCP Family Medicine; Referring Provider Family Medicine; Visit Provider Family Medicine
DX: D64.9 Anemia, unspecified (principal); I50.32 Chronic diastolic (congestive) heart failure; I95.1 Orthostatic hypotension
CPT/HCPCS: 36415; 80048; 82607

== ENCOUNTER 2024-04-12 15:13 | Emergency (ER) | payer MEDICARE, SELFPAY ==
[2024-04-12] VITALS (8 sets, daily range): BP systolic 121–165; BP diastolic 54–72; PULSE 62–89; RESP 14–19; TEMP 36.8; O2SAT 92–98; BMI 32.4
--- NOTE | 2024-04-12 15:55 | CT_ITS ---
EXAM: CT HEAD WITHOUT INTRAVENOUS CONTRAST CLINICAL INDICATION: fall, agitation TECHNIQUE: Multiple axial images were obtained of the head without intravenous contrast. This CT exam was performed using one or more of the following dose reduction techniques: automated exposure control, adjustment of the mA and/or kV according to patient size, and/or use of iterative reconstruction technique. RADIATION DOSE: CTDIvol = 44.99 mGy, DLP = 711.75 mGy-cm COMPARISON: No relevant prior studies available. FINDINGS: BRAIN AND EXTRA-AXIAL SPACES: Moderate generalized atrophy. Moderate low density bilaterally in the deep white matter. No intra- or extra-axial hemorrhage. No evidence of acute infarct. No intracranial mass or mass effect. There is preservation of the zapata/white matter interface. Posterior fossa structures are unremarkable. No hydrocephalus. Basal cisterns are patent. BONES/JOINTS: Unremarkable. No discrete lytic or blastic abnormalities. SINUSES: Unremarkable as visualized. Clear. MASTOID AIR CELLS: Unremarkable. Clear. ORBITS: Visualized globes, extraocular muscles, optic nerves and retrobulbar fat appear unremarkable. CT/Brain/Head without Contrast IMPRESSION: Moderate generalized atrophy. Moderate low density bilaterally in the deep white matter. This likely represents chronic small vessel ischemic changes in the deep white matter. Electronically Signed: Oscar Randle MD at 17:52 EDT ,
--- NOTE | 2024-04-12 15:55 | CT_ITS ---
EXAM: CT CERVICAL SPINE WITHOUT INTRAVENOUS CONTRAST CLINICAL INDICATION: fall TECHNIQUE: Helically acquired images were obtained of the cervical spine without intravenous contrast. 2D reformatted images were reviewed. This CT exam was performed using one or more of the following dose reduction techniques: automated exposure control, adjustment of the mA and/or kV according to patient size, and/or use of iterative reconstruction technique. RADIATION DOSE: CTDIvol = 21.54 mGy, DLP = 391.22 mGy-cm COMPARISON: No relevant prior studies available. FINDINGS: VERTEBRAE: Reversal of the normal cervical lordosis with moderate kyphotic deformity at C5-C6. Severe multilevel bilateral cervical vertebral facet arthropathy. Approximately 3 mm anterior subluxation of C4 on C5 on a degenerative basis. No fracture. No discrete lytic or blastic abnormality. Normal craniocervical junction and cervicothoracic junction. DISCS/SPINAL CANAL/NEURAL FORAMINA: Severe multilevel cervical degenerative disc disease. SOFT TISSUES: Unremarkable. No prevertebral soft tissue swelling. LYMPH NODES: Unremarkable. No cervical adenopathy. LUNG APICES: Unremarkable as visualized. Clear. CT/Spine Cervical without Contras IMPRESSION: 1. Severe cervical degenerative changes. No acute fractures or subluxations. 2. Approximately 3 mm anterior subluxation of C4 on C5 on a degenerative basis. Electronically Signed: Oscar Randle MD at 17:54 EDT ,
--- NOTE | 2024-04-12 15:55 | EKG12_ITS ---
Test Reason : FALL Blood Pressure : / mmHG Vent. Rate : 080 BPM Atrial Rate : 080 BPM P-R Int : 212 ms QRS Dur : 064 ms QT Int : 364 ms P-R-T Axes : 042 -52 026 degrees QTc Int : 419 ms Sinus rhythm with 1st degree A-V block Left axis deviation Inferior infarct , age undetermined Anterolateral infarct , age undetermined Abnormal ECG Confirmed by DANIEL BUSTILLO, HAWA ([id number]), editorial specialist JAMES RED ([id number]) on 04/16/2024 6:29:56 AM Referred By: Confirmed By:SHALONDA SANCHEZ MD
[2024-04-12] MEDS: Ziprasidone IM 20 MG/ML VIAL IM (15:57)
--- NOTE | 2024-04-12 15:57 | EX.ED.GENINJ ---
HPI History of Present Illness Chief Complaint: Fall Detail of Chief Complaint: Fall Informant: EMS and SNF Narrative Narrative: Patient presents to the emergency department via EMS from extended-care facility. Patient apparently had a fall today and really it is unclear what happened as patient cannot give any history due to her history of dementia. Patient has been agitated and belligerent and kicking and hitting staff. Unable to get any history from the patient. [facility] Medical History (Updated 04/12/24 @ 20:[address] Bakari Guerrero DO) Dementia Presence of prosthetic heart valve Hallucination Orthostatic hypotension Chronic diastolic (congestive) heart failure Supraventricular tachycardia Nonrheumatic aortic (valve) stenosis Anemia Home Medications ?Medication ?Instructions ?Recorded ?Last Taken ?Type acetaminophen 325 mg tablet 650 mg PO Q6H PRN Pain 02/12/23 Unknown History amlodipine 5 mg tablet 5 mg PO DAILY 02/12/23 Unknown History carvedilol 6.25 mg tablet 6.25 mg PO BID 02/12/23 Unknown History donepezil 10 mg tablet 10 mg PO DAILY 02/12/23 Unknown History hydrochlorothiazide 25 mg tablet 25 mg PO DAILY 02/12/23 Unknown History lisinopril 40 mg tablet 40 mg PO DAILY 02/12/23 Unknown History cephalexin 500 mg capsule 500 mg PO Q6 #40 CAPSULES 07/30/23 Unknown Rx cephalexin 500 mg capsule 500 mg PO Q6 #40 CAPSULES 07/30/23 Unknown Rx Allergy/AdvReac Type Severity Reaction Status Date / Time No Known Allergies Allergy Verified 04/12/24 15:15 Social History Smoking Status: Never smoker ROS ROS ED Review of Systems ROS Unobtainable: due to mental condition EXAM Physical Exam Narrative Exam Narrative: Patient agitated and kicking and screaming. She had to physically be restrained. Do not appreciate any obvious injuries on exam. Const Vital Signs: 04/12/24 15:15 04/12/24 15:21 04/12/24 16:14 Temperature 98.2 F Temperature Source Oral Pulse Rate 89 68 Respiratory Rate 16 16 Respiratory Effort Normal Respiratory Depth Normal Respiratory Pattern Normal Blood Pressure 130/72 H 121/54 H Blood Pressure Mean 91 76 Pulse Ox 92 94 93 Oxygen Delivery Method Room Air Room Air 04/12/24 17:00 04/12/24 18:00 04/12/24 19:00 Temperature Temperature Source Pulse Rate 75 64 62 Respiratory Rate 19 H 18 19 H Respiratory Effort Respiratory Depth Respiratory Pattern Blood Pressure 132/58 H 132/60 H 165/65 H Blood Pressure Mean 82 84 98 Pulse Ox 97 98 97 Oxygen Delivery Method Room Air Room Air Room Air 04/12/24 20:00 04/12/24 20:41 Temperature 98.2 F Temperature Source Pulse Rate 64 69 Respiratory Rate 14 18 Respiratory Effort Respiratory Depth Respiratory Pattern Blood Pressure 147/68 H 124/54 H Blood Pressure Mean 94 77 Pulse Ox 96 95 Oxygen Delivery Method Room Air Positive well nourished and well developed General Appearance ED: well developed and NAD HEENT Reports TM's clear and moist mucous membranes normocephalic and atraumatic; Negative for trauma or tenderness Tympanic Membrane ED: Yes TM's clear Eyes PERRL and EOMs intact bilaterally General Eye ED: Negative for pale conjunctiva or scleral icterus Neck no lymphadenopathy, supple and no JVD General: Negative for tenderness Chest Wall inspection of chest normal and palpation of chest normal Chest: Negative for tenderness Resp normal respiratory effort and clear to auscultation bilaterally Effort and Inspection: Negative for respiratory distress or pain with movement Auscultation: Negative for rhonchi, wheezes or diminished lung sounds Cardio regular rate, regular rhythm, S1 normal heart sound, S2 normal heart sound and no murmurs Peripheral Pulses: pulses 2+ throughout GI normal to inspection, nondistended, normoactive bowel sounds, soft to palpation, non-tender, non-distended and no masses Back/Spine no CVA tenderness and no thoracic nor lumbar tenderness Extremity Extremity Narrative: Evaluation of both knees does reveal ecchymosis and bruising to the anterior aspects of both knees and patellas. She has good range of motion flexion extension of both knees. She is neurovascular intact distally. General Extremety ED: Negative for edema General Extremity: Negative for edema Neuro oriented x3, CN's II-XII intact bilaterally, no sensory deficits noted and gait normal Sensorium / Orientation: awake, alert, oriented to person, oriented to place and oriented to time Motor Exam: strength 5/5 throughout and strength abnormal Psych mental status grossly normal Skin no rashes or lesions noted and no wounds MDM MDM MDM Narrative Medical decision making narrative: Patient unable to give history. She is agitated. Had to be physically restrained by nursing staff as I enter the room. Patient was ordered an IV as well as labs. I ordered Geodon 20 mg IM for sedation as we will have to chemically sedate the patient to appropriately evaluate her to include CT imaging of the brain as well as the C-spine. Will obtain a chest x-ray and pelvis x-ray. Will obtain urinalysis and basic labs. Basic labs were unremarkable here. Urinalysis unremarkable. CT scan of the brain without contrast unremarkable. CT of the cervical spine showed chronic degenerative changes. This point discussed results with family members. Discussed with [facility]. They are comfortable taking her back. Advised to follow-up with her primary care physicians within the next 2 to 3 days. Lab Data Attestation: I reviewed the patient's lab results. Labs: Laboratory Results - last 24 hr 04/12/24 04/12/24 16:22 17:05 WBC 5.7 RBC 3.62 L Hgb 11.4 L Hct 34.3 L MCV 94.8 MCH 31.5 MCHC 33.2 RDW Std Deviation 54.0 H RDW Coeff of Patricio 15.6 H Plt Count 156 MPV 10.9 Immature Gran % (Auto) 0.200 Neut % (Auto) 60.7 Lymph % (Auto) 27.0 Collier % (Auto) 9.1 Eos % (Auto) 2.3 Baso % (Auto) 0.7 Absolute Neuts (auto) 3.5 Absolute Lymphs (auto) 1.54 Nucleated RBC % 0 Sodium 141 Potassium 3.6 Chloride 110 H Carbon Dioxide 24.0 Anion Gap 7 BUN 36 H Creatinine 1.53 H Estim Creat Clear Calc 21.45 Est GFR (MDRD) Af Amer 41 L Est GFR (MDRD) Non-Af 34 L BUN/Creatinine Ratio 23.5 H Glucose 112 H Calcium 9.1 Troponin I High Sens 29 Urine Color Yellow Urine Clarity Clear Urine pH 5.0 Ur Specific [place] 1.020 Urine Protein 30 H Urine Glucose (UA) Normal Urine Ketones 5 H Urine Occult Blood Negative Urine Nitrite Negative Urine Bilirubin Negative Urine Urobilinogen Normal Ur Leukocyte Esterase Negative Urine RBC 0-5 SEEN Urine WBC 0 SEEN Ur Squamous Epith Cells 5-10 SEEN Urine Bacteria RARE Hyaline Casts 0-5 SEEN Urine Mucus 0 SEEN Radiography Diagnostic Testing: Clinical Impression(s) from Imaging Studies Brain CT 04/12/24 15:55 IMPRESSION: Moderate generalized atrophy. Moderate low density bilaterally in the deep white matter. This likely represents chronic small vessel ischemic changes in the deep white matter. Electronically Signed: Oscar Radnle MD at 17:52 EDT , Cervical Spine CT 04/12/24 15:55 IMPRESSION: 1. Severe cervical degenerative changes. No acute fractures or subluxations. 2. Approximately 3 mm anterior subluxation of C4 on C5 on a degenerative basis. Electronically Signed: Oscar Randle MD at 17:54 EDT Reading Location ID and State: [facility] / [place] Tel , Service support , Chest X-Ray 04/12/24 16:44 IMPRESSION: No acute cardiopulmonary abnormality. Electronically Signed: Oscar Randle MD at 17:59 EDT Reading Location ID and State: [email or web address] / [place] Tel , Service support , Pelvis X-Ray 04/12/24 16:44 IMPRESSION: No evidence of displaced pelvic fracture. Electronically Signed: Oscar Randle MD at 17:55 EDT Reading Location ID and State: [email or web address] / [place] Tel , Service support , Knee X-Ray 04/12/24 18:20 IMPRESSION: 1. Moderate medial compartment osteoarthritis with joint space narrowing and marginal osteophytes. 2. Chondrocalcinosis of the menisci bilaterally. Electronically Signed: Oscar Randle MD at 19:46 EDT Reading Location ID and State[id number] [place] Tel , Service support , Knee X-Ray 04/12/24 18:20 IMPRESSION: 1. 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 2. Bilateral chondrocalcinosis of the menisci. Electronically Signed: Oscar Randle MD at 19:46 EDT , 1 view chest x-ray obtained interpreted by myself as no evidence of fractures or pneumothorax or acute disease process. Radiology in agreement. 1 view x-ray of pelvis obtained interpreted by myself as no evidence of fractures and only signs of degenerative changes. Radiology in agreement. 4 view x-rays of the left knee obtained interpreted by myself as degenerative changes without evidence of fractures and radiology in agreement. 4 view x-rays of the right knee obtained interpreted by myself as no evidence of fractures or acute process. She had degenerative changes. Radiology in agreement. EKG Initial EKG: Attestation: I personally reviewed and interpreted this EKG as follows: Comments: Sinus rhythm with rate of 80 bpm with no acute ST segment changes Discharge Plan Triage Chief Complaint: Fall ED Provider: Bakari Guerrero Dx/Rx/DC Orders Clinical Impression: Fall, Contusion of knee, Dementia Instructions: Dementia Daily Care, ED Contusion, Lower Extremity, ED Fall with Uncertain Cause Prescriptions: No Action acetaminophen 325 mg Tablet 650 mg PO Q6H PRN (Reason: Pain) carvedilol 6.25 mg tablet 6.25 mg PO BID donepezil 10 mg tablet 10 mg PO DAILY amlodipine 5 mg Tablet 5 mg PO DAILY hydrochlorothiazide 25 mg tablet 25 mg PO DAILY lisinopril 40 mg tablet 40 mg PO DAILY cephalexin 500 mg capsule 500 mg PO Q6 Qty: 40 0RF cephalexin 500 mg capsule 500 mg PO Q6 Qty: 40 0RF Primary Care Provider: Jim Abdi Referrals: Isabella Woodson MD [Med Staff - [facility] Consultant] - 1-2 Days if not improving Print Language: Burmese Disposition Disposition: Home, Self Care Discharge Date/Time: 04/12/24 20:42
--- NOTE | 2024-04-12 16:14 | ED.RN ---
PATIENT ATTEMPTING TO CLIMB OUT OF BED. RN TRIED TO REDIRECT PATIENT WITHOUT SUCCESS. PATIENT SAID SHE IS LEAVING. RN CONTINUES TO ATTEMPT TO REDIRECT PATIENT. PATIENT BEGAN SCREAMING RAISING HER FIST AT THIS RN. RACH MIXON AT BEDSIDE ALSO ATTEMPTING TO REDIRECT PATIENT. PER DR. CALDERON, 20MG GEODON ORDERED. PATIENT MOVED CLOSER TO NURSES STATION. REPORT GIVEN TO RACH PILLAI
[2024-04-12 16:34] LABS: Absolute Lymphocyte Count 1.54 X10^3/uL (0.83-4.51); Absolute Neutrophil Count 3.5 X10^3/uL (2.0-7.7); Basophil# 0.04 X10^3/uL; Basophil% 0.7 % (0-1); Eosinophil# 0.13 X10^3/uL; Eosinophils% 2.3 % (0-5); Hematocrit 34.3 % (37-47); Hemoglobin 11.4 g/dL (12.0-15.0); Lymphocyte # 1.54 X10^3/ul (0.83-4.51); Mean Corp Hgb Conc 33.2 g/dL (32-36); Mean Corpuscular Hgb 31.5 pg (27.0-32.0); Mean Corpuscular Volume 94.8 fL (81-99); Mean Platelet Vol. 10.9 fl (6.2-12.0); Monocyte# 0.52 X10^3/uL; Monocyte% 9.1 % (0-10); NRBC Flagged by Analyzer 0 % (0-5); Neutrophil # 3.46 X10^3/uL (2.7-7.7); Neutrophil % 60.7 % (47-70); Platelet Count 156 K/mm3 (150-450); RBC Distribution Width CV 15.6 % (11.6-14.6); Red Blood Count 3.62 M/mm3 (4.2-5.4); White Blood Count 5.7 K/mm3 (4.4-11.0)
--- NOTE | 2024-04-12 16:44 | RAD_ITS ---
EXAM: XR PELVIS, 1 OR 2 VIEWS CLINICAL INDICATION: fall TECHNIQUE: Frontal view of the pelvis. COMPARISON: No relevant prior studies available. FINDINGS: BONES/JOINTS: Unremarkable. No displaced fracture. No destructive or sclerotic lesions. Note that overlapping bowel shadows may however obscure fine detail. Sacroiliac joints are unremarkable. No widening of the pubic symphysis. The articular structures are unremarkable. SOFT TISSUES: Unremarkable. No soft tissue swelling or gas. RAD/Pelvis 1 or 2 Views IMPRESSION: No evidence of displaced pelvic fracture. Electronically Signed: Oscar Randle MD at 17:55 EDT ,
--- NOTE | 2024-04-12 16:44 | RAD_ITS ---
EXAM: XR CHEST, 1 VIEW CLINICAL INDICATION: fall TECHNIQUE: Frontal view of the chest. COMPARISON: 02/12/2023. FINDINGS: LUNGS AND PLEURAL SPACES: Unremarkable. No consolidation or edema. No pneumothorax. No effusion. HEART: Unremarkable. Cardiac silhouette not enlarged. MEDIASTINUM: Central airways and mediastinal contour are unremarkable. BONES/JOINTS: Unremarkable. No acute fracture. SOFT TISSUES: Unremarkable. TUBES, LINES AND DEVICES: Status post transcatheter aortic valve replacement. RAD/Chest 1 View (Portable) IMPRESSION: No acute cardiopulmonary abnormality. Electronically Signed: Oscar Randle MD at 17:59 EDT ,
[2024-04-12 16:59] LABS: Anion Gap 7 (5-15); BUN 36 mg/dL (7-18); BUN/Creat Ratio 23.5 RATIO (10-20); Calcium,Total 9.1 mg/dL (8.5-10.1); Chloride 110 mmol/L (98-107); Creatinine, Serum 1.53 mg/dL (0.55-1.02); EST Glomerular Filtration Rate 34 mL/min (>60); Est Glom Filt Rate - Afr Amer 41 mL/min (>60); Estimated Creatinine Clearance 21.45 ml/min; Glucose 112 mg/dL (74-106); Potassium 3.6 mmol/L (3.5-5.1); Sodium Level 141 mmol/L (136-145); Troponin-I HS 29 pg/mL (3.0-54.0)
[2024-04-12 17:10] LABS: Mucous, Urine 0 SEEN /hpf (<or=2+); White Blood Cells 0 SEEN /hpf (0-5)
[2024-04-12 17:22] LABS: Color, Urine Yellow (Yellow); Glucose, Dipstick Normal (Normal); Ketone-Dipstick 5 mg/dl (Negative); Leukocyte Esterase-Dipstick Negative /ul (Negative); Nitrite-Dipstick Negative (Negative); Occult Blood-Urine Negative /ul (Negative); Protein-Dipstick 30 mg/dl (Negative); Urine Bilirubin Dipstick Negative (Negative); Urine Clarity Clear (Clear); Urine Urobilinogen Normal (Normal)
[2024-04-12 17:32] LABS: Bacteria RARE /hpf (None Seen); Hyaline Cast 0-5 SEEN /lpf (0-5); Red Blood Cells-Urine 0-5 SEEN /hpf (0-5); Squamous Epithelial Cells - UA 5-10 SEEN /hpf (5-10)
--- NOTE | 2024-04-12 18:20 | RAD_ITS ---
EXAM: XR LEFT KNEE COMPLETE, 4 OR MORE VIEWS CLINICAL INDICATION: injury TECHNIQUE: Four or more views of the left knee. COMPARISON: No relevant prior studies available. 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 Bilateral chondrocalcinosis of the menisci. No acute fracture. No subluxation. Normal alignment. SOFT TISSUES: Unremarkable. No soft tissue swelling or gas. No radiopaque foreign body. RAD/Knee 4 or More Views IMPRESSION: 1. 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 2. Bilateral chondrocalcinosis of the menisci. Electronically Signed: Oscar Randle MD at 19:46 EDT ,
--- NOTE | 2024-04-12 18:20 | RAD_ITS ---
EXAM: XR RIGHT KNEE COMPLETE, 4 OR MORE VIEWS CLINICAL INDICATION: injury TECHNIQUE: Four or more views of the right knee. COMPARISON: No relevant prior studies available. FINDINGS: BONES/JOINTS: Moderate medial compartment osteoarthritis with joint space narrowing and marginal osteophytes. Chondrocalcinosis of the menisci bilaterally. No acute fracture. No subluxation. Normal alignment. No sclerotic or destructive changes observed. SOFT TISSUES: Unremarkable. No soft tissue swelling or gas. No radiopaque foreign body. RAD/Knee 4 or More Views IMPRESSION: 1. Moderate medial compartment osteoarthritis with joint space narrowing and marginal osteophytes. 2. Chondrocalcinosis of the menisci bilaterally. Electronically Signed: Oscar Randle MD at 19:46 EDT ,
== END 2024-04-12 20:42 | disposition home or self-care (01) ==
PROVIDERS: Emergency Provider Emergency Medicine; Visit Provider Emergency Medicine
DX: S80.01XA Contusion of right knee, initial encounter (principal); I50.32 Chronic diastolic (congestive) heart failure; F03.90 Unspecified dementia, unspecified severity, without behavioral disturbance, psychotic disturbance, mood disturbance, and anxiety; S80.02XA Contusion of left knee, initial encounter; W19.XXXA Unspecified fall, initial encounter
CPT/HCPCS: 70450; 71045; 72125; 72170; 73564; 80048; 81001; 84484; 85025; 93005; 96372; 99284; P9612; A4216

== ENCOUNTER → 2024-06-03 | Outpatient (REF) | payer MEDICARE, SELFPAY ==
[2024-06-03 08:35] LABS: Anion Gap 7 (5-15); BUN 31 mg/dL (7-18); BUN/Creat Ratio 27.4 RATIO (10-20); Calcium,Total 9.2 mg/dL (8.5-10.1); Chloride 110 mmol/L (98-107); Creatinine, Serum 1.13 mg/dL (0.55-1.02); EST Glomerular Filtration Rate 48 mL/min (>60); Est Glom Filt Rate - Afr Amer 58 mL/min (>60); Glucose 98 mg/dL (74-106); Potassium 3.6 mmol/L (3.5-5.1); Sodium Level 143 mmol/L (136-145)
== END ==
LOC: OLS.BROOKB 05:00
PROVIDERS: Visit Provider Family Medicine
DX: D64.9 Anemia, unspecified (principal); I95.1 Orthostatic hypotension; R44.3 Hallucinations, unspecified; R53.81 Other malaise; F03.90 Unspecified dementia, unspecified severity, without behavioral disturbance, psychotic disturbance, mood disturbance, and anxiety; I35.0 Nonrheumatic aortic (valve) stenosis
CPT/HCPCS: 36415; 80048

== ENCOUNTER → 2024-06-11 | Outpatient (REF) | payer MEDICARE, SELFPAY ==
[2024-06-11 07:47] LABS: Hematocrit 31.4 % (37-47); Hemoglobin 10.3 g/dL (12.0-15.0); Mean Corp Hgb Conc 32.8 g/dL (32-36); Mean Corpuscular Hgb 31.8 pg (27.0-32.0); Mean Corpuscular Volume 96.9 fL (81-99); Mean Platelet Vol. 11.2 fl (6.2-12.0); Platelet Count 155 K/mm3 (150-450); RBC Distribution Width CV 15.9 % (11.6-14.6); RBC Distribution Width SD 56.7 fl (35.1-43.9); Red Blood Count 3.24 M/mm3 (4.2-5.4); White Blood Count 5.4 K/mm3 (4.4-11.0)
[2024-06-11 08:13] LABS: Cholesterol 193 mg/dL (200); High Density Lipoprotein 63 mg/dL; T4 Total, Thyroxin 9.6 ug/dL (4.8-13.9); Triglycerides 75 mg/dL; Very Low Density Lipoprotein 15 mg/dL (5-40)
== END ==
LOC: OLS.BROOKB 05:00
PROVIDERS: Visit Provider Family Medicine
DX: F03.90 Unspecified dementia, unspecified severity, without behavioral disturbance, psychotic disturbance, mood disturbance, and anxiety (principal); E78.5 Hyperlipidemia, unspecified
CPT/HCPCS: 36415; 80061; 84436; 84443; 85027